=== PATIENT | female | born 1990 | race Caucasian/White ===

== ENCOUNTER 2018-03-10 10:27 | Emergency (ER) | payer BC, OTHER ==
[2018-03-10 13:32] LABS: Absolute Lymphocytes (CBC) 0.9 K/uL (0.7-4.9); Absolute Monocytes 0.2 K/uL (0.1-1.3); Absolute Neutrophil 10.6 K/uL (1.8-8.0); Basophils % 0.1 % (0-1.3); Lymphocytes % 7.4 % (15.3-44.8); MCV 93.9 fL (80-100); MPV 8.4 fL (7.6-11.3); Monocytes % 1.3 % (3.3-12.3)
[2018-03-10 13:49] LABS: Albumin 4.9 g/dL (3.4-5.0); Bilirubin Direct 0.1 mg/dL (0-0.2); Bilirubin Total 0.3 mg/dL (0.2-1.0); Potassium 3.8 mmol/L (3.5-5.1)
[2018-03-10] MEDS ORDERED: NA CHLORIDE 0.9% 1,000 ML ONE (13:56)
[2018-03-10] MEDS ORDERED: hydroCHLOROthiazide 25 MG TAB ONE (13:56)
[2018-03-10] MEDS ORDERED: FAMOTIDINE 20 MG/2 ML VIAL IV ONE (13:56)
--- NOTE | 2018-03-10 14:55 | EDPHYS ---
Physician Documentation [facility] Name: Hawa Godinez Age: 27 yrs Sex: Female : 1990 Arrival Date: 03/10/2018 Time: 10:30 Bed Treatment Private MD: ED Physician Karlo Angeles HPI: 03/10 12:52 This 27 yrs old Female presents to ER via Ambulatory with complaints of Hives.[facility] 12:52 The patient's rash thought to be caused by an unknown cause. The rash is located on the jmm body diffusely. Onset: The symptoms/episode began/occurred gradually, 3 day(s) ago. Associated signs and symptoms: Pertinent positives: itching, Pertinent negatives: swelling of lips, swelling of throat, swelling of tongue, vomiting, wheezing. This is a 27 year old female with a history of PTSD, anxiety that presents to the emergency department with a diffuse rash with itching. Worse in the evenings. Patient states she is currently taking prednisone and benadryl with no relief. Denies vomiting or swelling. . ICU CLERK: 16:52 LMP N/A - iw Historical: - Allergies: 10:40 No Known Allergies; aj - Home Meds: 10:40 Ativan Oral [Active]; cyclobenzaprine 5 mg Oral tab [Active]; tramadol 50 mg Oral tab 1 aj tab every 4-6 hours for Pain [Active]; Prednisone Oral [Active]; Benadryl 25 mg Oral cap [Active]; - PMHx: 10:40 complex regional pain syndrome; aj - PSHx: 10:40 Spinal stimulator; aj - Immunization history:: Adult Immunizations up to date. - Social history:: Smoking status: Patient/guardian denies using tobacco. - Ebola Screening: : Patient negative for fever greater than or equal to 101.5 degrees Fahrenheit, and additional compatible Ebola Virus Disease symptoms Patient denies exposure to infectious person Patient denies travel to an Ebola-affected area in the 21 days before illness onset No symptoms or risks identified at this time. ROS: 12:52 Constitutional: Negative for fever, chills, and weight loss, Cardiovascular: Negative [facility] for chest pain, palpitations, and edema, Respiratory: Negative for shortness of breath, cough, wheezing, and pleuritic chest pain. 12:52 Skin: Positive for rash. 12:52 Allergy/Immunology: Positive for pruritus, rash. 12:52 All other systems are negative. Exam: 12:52 Eyes: EOMI, no conjunctival erythema appreciated Chest/axilla: Normal chest wall [facility] appearance and motion. Cardiovascular: Regular rate and rhythm. No edema appreciated Respiratory: Normal respirations, no respiratory distress appreciated Abdomen/GI: Non distended, soft 12:52 Constitutional: The patient appears in no acute distress, alert, awake. 12:52 Head/face: erythematous rash noted to the cheeks bilaterally. 12:52 Skin: erythematous rash noted to the face, lower back, and legs bilaterally. . 12:52 Neuro: Orientation: is normal, Mentation: is normal, Memory: is normal, Gait: is steady. 12:52 Psych: Behavior/mood is pleasant, cooperative. Vital Signs: 10:40 BP 124 / 56; Pulse 112; Resp 20; Temp 99.1(O); Pulse Ox 97% on R/A; Weight 61.69 kg; aj Height 4 ft. 11 in. (149.86 cm) (R); 14:19 BP 118 / 66; Pulse 87; Resp 16; Pulse Ox 100% on R/A; Pain 0/10; iw 10:40 Body Mass Index 27.47 (61.69 kg, 149.86 cm) aj MDM: 12:52 Patient medically screened. [facility] 14:25 Differential diagnosis: allergic reaction. Data reviewed: vital signs, nurses notes. [facility] Data interpreted: Pulse oximetry: on room air is 100 %. ED course: Patient has mild relief after administration of Pepcid and hydroxyzine. No pharyngeal edema appreciated, VS normal. I do not suspect anaphylaxis. Patient is advised to follow up with central service supply distributor. Otherwise given strict return precautions. Patient understood and agrees with the plan of care. . 03/10 12:52 Order name: Basic Metabolic Panel; Complete Time: 14:25 [facility] 03/10 12:52 Order name: CBC with Diff [facility] 03/10 12:52 Order name: Creatinine for Radiology; Complete Time: 15:03 [facility] 03/10 12:52 Order name: Hepatic Function; Complete Time: 14:25 [facility] 03/10 12:52 Order name: Lipase; Complete Time: 14:25 [facility] 03/10 13:33 Order name: Urine Dipstick--Ancillary (enter results) 03/10 12:52 Order name: IV Saline Lock; Complete Time: 14:23 [facility] 03/10 12:52 Order name: Labs collected and sent; Complete Time: 14:23 [facility] 03/10 13:33 Order name: Urine --Ancillary (enter results) 03/10 13:33 Order name: CBC Smear Scan EDMS Administered Medications: 13:53 Drug: NS 0.9% 1000 ml Route: IV; Rate: 1 bolus; Site: left antecubital; iw 13:53 Drug: Pepcid 20 mg Route: IVP; Site: left antecubital; iw 15:00 Follow up: Response: No adverse reaction iw 13:53 Drug: hydrOXYzine 50 mg Route: PO; iw 16:50 Follow up: Response: No adverse reaction Disposition: 03/11 13:50 Co-signature as Attending Physician, Karlo Angeles MD I agree with the assessment and kdr plan of care. Disposition: 03/10/18 14:55 Discharged to Home. Impression: Rash and other nonspecific skin eruption. - Condition is Stable. - Discharge Instructions: Rash. - Prescriptions for Hydroxyzine HCl 25 mg Oral Tablet - take 1 tablet by ORAL route every 6 hours As needed; 30 tablet. Pepcid 20 mg Oral Tablet - take 1 tablet by ORAL route every 12 hours for 10 days; 20 tablet. Prednisone 20 mg Oral Tablet - take 3 tablet by ORAL route once daily 12 days Please take 3 tabs by mouth daily for 3 days, then 2 tabs by mouth daily for 3 days, then 1 tab by mouth daily for 3 days, then 1/2 tab by mouth daily for 3 days.; 20 tablet. - School release form, Work release form, Medication Reconciliation Form, Thank You Letter, Antibiotic Education, Prescription Opioid Use form. - Follow up: Private Physician; When: 2 - 3 days; Reason: Recheck today's complaints, Continuance of care, Re-evaluation by your physician. Signatures: Dispatcher [employer] EDMS Alba August, RN Karlo Stevens MD MD kdr Mickail, Joel, PA PA Tootie Lopez RN RN iw Corrections: (The following items were deleted from the chart) 03/10 15:16 14:55 03/10/2018 14:55 Discharged to Home. Impression: Rash and other nonspecific skin iw eruption. Condition is Stable. Forms are Medication Reconciliation Form, Thank You Letter, Antibiotic Education, Prescription Opioid Use. Follow up: Private Physician; When: 2 - 3 days; Reason: Recheck today's complaints, Continuance of care, Re-evaluation by your physician. simba
--- NOTE | 2018-03-10 14:55 | ER ---
Nurse's Notes [facility] Name: Hawa Godinez Age: 27 yrs Sex: Female : 1990 Arrival Date: 03/10/2018 Time: 10:30 Bed Treatment Private MD: Diagnosis: Rash and other nonspecific skin eruption Presentation: 03/10 10:38 Presenting complaint: Patient states: Hives that started 3 days ago. Seen by [place] [facility] 3 aj days ago and started on steroids. [facility] and instructed to [facility]. Patient reports hives are continuing to return, in spite of prednisone and Benadryl usage. Airway is patent. Transition of care: patient was not received from another setting of care. Onset: The symptoms/episode began/occurred 3 day(s) ago. Anaphylaxis evaluation, no signs or symptoms of anaphylaxis were noted. Onset of symptoms was March 07, 2018. Risk Assessment: Do you want to hurt yourself or someone else? Patient reports no desire to harm self or others. Initial Sepsis Screen: Does the patient meet any 2 criteria? No. Patient's initial sepsis screen is negative. Does the patient have a suspected source of infection? No. Patient's initial sepsis screen is negative. Care prior to arrival: None. 10:38 Method Of Arrival: Ambulatory aj 10:38 Acuity: KADE 4 aj Triage Assessment: 10:40 General: Appears in no apparent distress. comfortable, Behavior is cooperative, aj appropriate for age, anxious. Pain: Denies pain. Neuro: Level of Consciousness is awake, alert, obeys commands, Oriented to person, place, time, situation, Appropriate for age. Respiratory: Airway is patent Respiratory effort is even, unlabored, Respiratory pattern is regular, symmetrical, Denies shortness of breath. Derm: Skin is intact, is healthy with good turgor, Skin is pink, warm \T\ dry. normal, Rash noted that is itchy, on back, abdomen, right arm and left arm. 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 - Social history:: Smoking status: Patient/guardian denies using tobacco. - Ebola Screening: : Patient negative for fever greater than or equal to 101.5 degrees Fahrenheit, and additional compatible Ebola Virus Disease symptoms Patient denies exposure to infectious person Patient denies travel to an Ebola-affected area in the 21 days before illness onset No symptoms or risks identified at this time. Screenin:31 Abuse screen: Denies threats or abuse. Denies injuries from another. Nutritional iw screening: No deficits noted. Tuberculosis screening: No symptoms or risk factors identified. 13:50 Fall Risk None identified. iw Assessment: 13:00 General: Appears in no apparent distress. comfortable, Behavior is calm, cooperative. iw Neuro: Level of Consciousness is awake, alert, obeys commands, Oriented to person, place, time, situation, Moves all extremities. Full function. Respiratory: Airway is patent Respiratory effort is even, unlabored, Breath sounds are clear bilaterally. Derm: Rash noted that is red, urticaria, on pelvis, right leg and left leg. Musculoskeletal: Capillary refill < 3 seconds, in bilateral fingers. 15:04 Reassessment: Patient appears in no apparent distress at this time. Patient and/or sg family updated on plan of care and expected duration. Pain level reassessed. Patient is alert, oriented x 3, equal unlabored respirations, skin warm/dry/pink. Patient states symptoms have not improved. Vital Signs: 10:40 BP 124 / 56; Pulse 112; Resp 20; Temp 99.1(O); Pulse Ox 97% on R/A; Weight 61.69 kg; aj Height 4 ft. 11 in. (149.86 cm) (R); 14:19 BP 118 / 66; Pulse 87; Resp 16; Pulse Ox 100% on R/A; Pain 0/10; iw 10:40 Body Mass Index 27.47 (61.69 kg, 149.86 cm) aj ED Course: 10:30 Patient arrived in ED. as 10:39 Triage completed. aj 10:40 Arm band placed on left wrist. Patient placed in waiting room, Patient notified of wait aj time. 11:00 Patient has correct armband on for positive identification. iw 12:05 Tootie Mccord, RN is Primary Nurse. iw 12:26 Philip Jesus PA is PHCP. [facility] 12:26 Karlo Angeles MD is Attending Physician. [facility] 13:15 Inserted saline lock: 20 gauge in left antecubital area, using aseptic technique. Blood jp3 collected. 13:15 Initial lab(s) drawn, by me, sent to lab. Urine collected: clean catch specimen, clear, jp3 eric colored. 14:26 Primary Nurse role handed off by Tootie Mccord, RN 14:26 Chance Cool, RN is Primary Nurse. sg 15:03 Awaiting: awaiting IV fluids to infuse prior to DC to home. sg 15:15 No provider procedures requiring assistance completed. IV discontinued, intact, iw bleeding controlled, No redness/swelling at site. Pressure dressing applied. Administered Medications: 13:53 Drug: NS 0.9% 1000 ml Route: IV; Rate: 1 bolus; Site: left antecubital; iw 13:53 Drug: Pepcid 20 mg Route: IVP; Site: left antecubital; iw 15:00 Follow up: Response: No adverse reaction iw 13:53 Drug: hydrOXYzine 50 mg Route: PO; iw 16:50 Follow up: Response: No adverse reaction Outcome: 14:55 Discharge ordered by . [facility] 15:15 Discharged to home ambulatory. iw 15:15 Condition: good 15:15 Discharge instructions given to patient, Instructed on discharge instructions, follow up and referral plans. medication usage, Demonstrated understanding of instructions, follow-up care, medications, Prescriptions given X 3. 15:16 Patient left the ED. iw Signatures: Chance Cool, RN JULIO Alba August RN RN aj Mickail, Joel, PA PA jmm Martinez, Amelia as Tootie Mccord, JULIO KIM Mike Saldaña jp3
[2018-03-10 15:19] LABS: Blood Morphology Comment NOT SEEN (NOT SEEN); Platelet Estimate ADEQ; Urine White Blood Cell Casts OK
[2018-03-10 16:08] LABS: Urine Blood NEGATIVE (NEG); Urine Glucose NEGATIVE (NEG); Urine Protein NEGATIVE (NEG); Urine Specific Gravity 1.015 (1.005-1.030)
== END 2018-03-10 15:16 | disposition home or self-care (01) ==
LOC: ER 10:27
DX: R21 Rash and other nonspecific skin eruption (principal)
CPT/HCPCS: 36415; 80048; 80076; 81003; 81025; 83690; 85025; 96374; 99284; J7030

== ENCOUNTER 2019-01-26 18:24 | Emergency (ER) | payer BC ==
[2019-01-26 21:39] LABS: Bilirubin Total 0.2 mg/dL (0.2-1.0); Potassium 3.8 mmol/L (3.5-5.1); Protein, Total 7.5 g/dL (6.4-8.2)
[2019-01-26 21:49] LABS: Absolute Lymphocytes (CBC) 2.7 K/uL (0.7-4.9); Basophils % 0.6 % (0-1.3); Hematocrit 42.2 % (36.0-45.0); Lymphocytes % 32.1 % (15.3-44.8); MPV 8.2 fL (7.6-11.3); RBC Red Blood Cell Count 4.63 M/uL (3.86-4.86)
[2019-01-26 21:51] LABS: Urine Blood NEGATIVE (NEG); Urine Glucose NEGATIVE (NEG); Urine Protein NEGATIVE (NEG); Urine pH 6.5 (5.0-7.0)
--- NOTE | 2019-01-26 22:12 | ER ---
Nurse's Notes [facility] Name: Hawa Godinez Age: 28 yrs Sex: Female : 1990 Arrival Date: 01/26/2019 Time: 18:26 Bed 8 Private MD: Diagnosis: Paresthesia of skin;Tay's palsy Presentation: 01/26 18:53 Presenting complaint: Numbness of extremities x 3-4 days, headache and numbness on left hb side of face x 3 hrs. Transition of care: patient was not received from another setting of care. Onset of symptoms is unknown. Risk Assessment: Do you want to hurt yourself or someone else? Patient reports no desire to harm self or others. Initial Sepsis Screen: Does the patient meet any 2 criteria? No. Patient's initial sepsis screen is negative. Does the patient have a suspected source of infection? No. Patient's initial sepsis screen is negative. Care prior to arrival: None. 18:53 Method Of Arrival: Ambulatory hb 18:53 Acuity: KADE 3 hb Triage Assessment: 19:06 General: Appears in no apparent distress. comfortable, Behavior is calm, cooperative, cc3 appropriate for age. Pain: Complains of pain in head. Historical: - Allergies: 18:56 No Known Allergies; hb - Home Meds: 19:06 Ativan Oral [Active]; Benadryl 25 mg Oral cap [Active]; cyclobenzaprine 5 mg Oral tab cc3 [Active]; Prednisone Oral [Active]; tramadol 50 mg Oral tab 1 tab every 4-6 hours for Pain [Active]; - PMHx: 18:56 complex regional pain syndrome; hb - Immunization history:: Adult Immunizations up to date. - Social history:: Smoking status: Patient/guardian denies using tobacco, never smoked. - Ebola Screening: : No symptoms or risks identified at this time. Screenin:06 Abuse screen: Denies threats or abuse. Denies injuries from another. Nutritional cc3 screening: No deficits noted. Tuberculosis screening: No symptoms or risk factors identified. Fall Risk Ambulatory Aid- None/Bed Rest/Nurse Assist (0 pts). Gait- Normal/Bed Rest/Wheelchair (0 pts) Mental Status- Oriented to own ability (0 pts). Assessment: 19:06 General: Appears in no apparent distress. comfortable, Behavior is calm, cooperative, cc3 appropriate for age. Pain: Denies pain. Neuro: Level of Consciousness is awake, alert, obeys commands, Oriented to person, place, time, situation, Appropriate for age Tool Programmer are equal bilaterally Moves all extremities. Full function Gait is steady, Speech is normal, Facial symmetry appears normal, Pupils are PERRLA, Numbness in face Reports numbness in her extremities since 3-4 days already. Cardiovascular: Denies chest pain, Heart tones S1 S2 present Capillary refill < 3 seconds in bilateral fingers Patient's skin is warm and dry. Respiratory: Airway is patent Respiratory effort is even, unlabored, Respiratory pattern is regular, symmetrical. GI: Abdomen is round non-distended. : No signs and/or symptoms were reported regarding the genitourinary system. EENT: No signs and/or symptoms were reported regarding the EENT system. Derm: Skin is intact, is healthy with good turgor, Skin is pink, warm \T\ dry. normal. Musculoskeletal: Circulation, motion, and sensation intact. Range of motion: intact in all extremities. 20:10 Reassessment: Patient appears in no apparent distress at this time. Patient and/or cc3 family updated on plan of care and expected duration. Pain level reassessed. Patient is alert, oriented x 3, equal unlabored respirations, skin warm/dry/pink. Dr. Law at bedside. 21:19 Reassessment: Patient appears in no apparent distress at this time. Patient and/or cc3 family updated on plan of care and expected duration. Pain level reassessed. Patient is alert, oriented x 3, equal unlabored respirations, skin warm/dry/pink. 22:30 Reassessment: Patient appears in no apparent distress at this time. Patient and/or cc3 family updated on plan of care and expected duration. Pain level reassessed. Patient is alert, oriented x 3, equal unlabored respirations, skin warm/dry/pink. Dr. Law discharged the patient home with prescriptions given. IV cannula removed by JULIO Kent and patient left ER vitally stable and ambulatory. No valuables left in the patient's room. Patient denies pain at this time. Patient states feeling better. Patient states symptoms have improved. Vital Signs: 18:56 BP 124 / 92; Pulse 100; Resp 16; Temp 97.2; Pulse Ox 100% on R/A; Weight 68.49 kg; hb Height 4 ft. 11 in. (149.86 cm); Pain 2/10; 19:30 BP 106 / 75; Pulse 86; Resp 16 S; Pulse Ox 99% on R/A; cc3 20:10 BP 100 / 68; Pulse 88; Resp 17 S; Pulse Ox 100% on R/A; cc3 21:18 BP 110 / 81; Pulse 81; Resp 16 S; Pulse Ox 100% on R/A; cc3 22:12 BP 112 / 85; Pulse 85; Resp 16 S; Pulse Ox 99% on R/A; Pain 2/10; cc3 18:56 Body Mass Index 30.50 (68.49 kg, 149.86 cm) hb ED Course: 18:26 Patient arrived in ED. mr 18:55 Triage completed. hb 18:56 Arm band placed on. hb 19:06 Yris Finley is Primary Nurse. cc3 19:06 Patient has correct armband on for positive identification. Bed in low position. Call cc3 light in reach. Side rails up X 1. Pulse ox on. NIBP on. 20:07 Edin Law MD is Attending Physician. ps1 20:57 CT completed. Patient tolerated procedure well. Patient moved to [place]. Patient moved back ga from CT. 21:00 Inserted saline lock: 20 gauge in left antecubital area, using aseptic technique. Blood cc3 collected. 21:05 CT Head Brain wo Cont In Process Unspecified. EDMS 22:30 No provider procedures requiring assistance completed. IV discontinued, intact, cc3 bleeding controlled, No redness/swelling at site. Pressure dressing applied. Administered Medications: No medications were administered Outcome: 22:12 Discharge ordered by . ps1 22:30 Discharged to home ambulatory. cc3 22:30 Condition: stable 22:30 Discharge instructions given to patient, Instructed on discharge instructions, follow up and referral plans. medication usage, Demonstrated understanding of instructions, follow-up care, medications, Prescriptions given X 2. 22:31 Patient left the ED. cc3 Signatures: Dispatcher [employer] EDWA Logan Margarette botello MeadowsDilia RN RN He Goff ga Edin Law MD MD ps1 Yris Finley cc3
--- NOTE | 2019-01-26 22:13 | EDPHYS ---
Physician Documentation [facility] Name: Hawa Godinez Age: 28 yrs Sex: Female : 1990 Arrival Date: 01/26/2019 Time: 18:26 Bed 8 Private MD: ED Physician Edin Law HPI: 01/26 22:04 This 28 yrs old Female presents to ER via Ambulatory with complaints of ps1 Numbness Of Face. 22:05 This 28 yrs old Female presents to ER via Ambulatory with complaints of ps1 Numbness Of Face. 22:05 Patient has a history of CRPS II and has had a headache for 3 days. Denies having viral ps1 type illness. States that she has right facial numbness and abnormal taste. No loss of movement in the face. 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 No FND otherwise. No medication taken [employer]ELOPMENT [employer]. . Historical: - Allergies: 18:56 No Known Allergies; hb - Home Meds: 19:06 Ativan Oral [Active]; Benadryl 25 mg Oral cap [Active]; cyclobenzaprine 5 mg Oral tab cc3 [Active]; Prednisone Oral [Active]; tramadol 50 mg Oral tab 1 tab every 4-6 hours for Pain [Active]; - PMHx: 18:56 complex regional pain syndrome; hb - Immunization history:: Adult Immunizations up to date. - Social history:: Smoking status: Patient/guardian denies using tobacco, never smoked. - Ebola Screening: : No symptoms or risks identified at this time. ROS: 22:05 Constitutional: Negative for fever, chills, and weight loss, Eyes: Negative for injury, ps1 pain, redness, and discharge, Cardiovascular: Negative for chest pain, palpitations, and edema, Respiratory: Negative for shortness of breath, cough, wheezing, and pleuritic chest pain, Abdomen/GI: Negative for abdominal pain, nausea, vomiting, diarrhea, and constipation, MS/Extremity: Negative for injury and deformity, Skin: Negative for injury, rash, and discoloration. 22:05 Neuro: Positive for numbness, of the forehead, right eye, right cheek and right jaw, abnormal taste. Exam: 22:05 Radiologist reports: normal ps1 22:05 Constitutional: This is a well developed, well nourished patient who is awake, alert, and in no acute distress. Head/Face: Normocephalic, atraumatic. Eyes: Pupils equal round and reactive to light, extra-ocular motions intact. Lids and lashes normal. Conjunctiva and sclera are non-icteric and not injected. Chest/axilla: Normal chest wall appearance and motion. Nontender with no deformity. No lesions are appreciated. Cardiovascular: Regular rate and rhythm. No gallops, murmurs, or rubs. Normal PMI, no JVD. No pulse deficits. Respiratory: Lungs have equal breath sounds bilaterally, clear to auscultation and percussion. No rales, rhonchi or wheezes noted. No increased work of breathing, no retractions or nasal flaring. Abdomen/GI: Soft, non-tender, with normal bowel sounds. No distension or tympany. No guarding or rebound. No evidence of tenderness throughout. Skin: Warm, dry with normal turgor. Normal color with no rashes, no lesions, and no evidence of cellulitis. MS/ Extremity: Pulses equal, no cyanosis. Neurovascular intact. Full, normal range of motion. Neuro: Awake and alert, GCS 15, oriented to person, place, time, and situation. Cranial nerves II-XII grossly intact. Sensory grossly intact. Vital Signs: 18:56 BP 124 / 92; Pulse 100; Resp 16; Temp 97.2; Pulse Ox 100% on R/A; Weight 68.49 kg; hb Height 4 ft. 11 in. (149.86 cm); Pain 2/10; 19:30 BP 106 / 75; Pulse 86; Resp 16 S; Pulse Ox 99% on R/A; cc3 20:10 BP 100 / 68; Pulse 88; Resp 17 S; Pulse Ox 100% on R/A; cc3 21:18 BP 110 / 81; Pulse 81; Resp 16 S; Pulse Ox 100% on R/A; cc3 22:12 BP 112 / 85; Pulse 85; Resp 16 S; Pulse Ox 99% on R/A; Pain 2/10; cc3 18:56 Body Mass Index 30.50 (68.49 kg, 149.86 cm) hb MDM: 20:21 Patient medically screened. ps1 22:05 Data reviewed: vital signs, nurses notes, lab test result(s), radiologic studies, and ps1 as a result, I will discharge patient. Counseling: I had a detailed discussion with the patient and/or guardian regarding: the historical points, exam findings, and any diagnostic results supporting the discharge/admit diagnosis, lab results, radiology results, the need for outpatient follow up, to return to the emergency department if symptoms worsen or persist or if there are any questions or concerns that arise at home. ED course: symptoms and workup has multiple possible etiologies of disease. CT negative. ? Early [place] associated with numbness and dysgusia. Additionally has fullness of the right ear. Likely peripheral nerve involvement. ? Complex migraine given hx of headache and then development of symptoms. Less likely CVA, No FND in extremities or loss of motor in face. Will rx acyclovir and steroids and have her follow up with neurology OP for further evaluation. . 01/26 20:36 Order name: CBC with Diff; Complete Time: 22:01 ps1 01/26 20:36 Order name: CMP; Complete Time: 21:48 ps1 01/26 20:36 Order name: Urine Dipstick-Ancillary (obtain specimen); Complete Time: 21:24 ps1 01/26 20:36 Order name: CT Head Brain wo Cont ps1 01/26 21:01 Order name: Urine Dipstick--Ancillary (enter results) mw2 01/26 21:01 Order name: Urine --Ancillary (enter results) mw2 Administered Medications: No medications were administered Disposition: 01/26/19 22:12 Discharged to Home. Impression: Paresthesia of skin, Tay's palsy. - Condition is Stable. - Discharge Instructions: Tay Palsy, Adult, Paresthesia. - Prescriptions for Acyclovir 400 mg Oral Tablet - take 1 tablet by ORAL route every 8 hours; 30 tablet. Medrol (Antonio) 4 mg Oral Tablets, Dose Pack - take 1 tablet by ORAL route as directed - follow package instructions; 1 packet. - Medication Reconciliation Form, Thank You Letter, Antibiotic Education, Prescription Opioid Use form. - Follow up: Emergency Department; When: As needed; Reason: Worsening of condition. Follow up: Private Physician; When: 48 Hours; Reason: Further diagnostic work-up, Recheck today's complaints, Continuance of care, Re-evaluation by your physician. - Problem is new. - Symptoms are unchanged. Signatures: Dispatcher [employer] Dilia Meadows RN RN hb Edin Law MD MD ps1 Yris Finley cc3 Corrections: (The following items were deleted from the chart) 22:31 22:12 01/26/2019 22:12 Discharged to Home. Impression: Paresthesia of skin; Tay's cc3 palsy. Condition is Stable. Forms are Medication Reconciliation Form, Thank You Letter, Antibiotic Education, Prescription Opioid Use. Follow up: Emergency Department; When: As needed; Reason: Worsening of condition. Follow up: Private Physician; When: 48 Hours; Reason: Further diagnostic work-up, Recheck today's complaints, Continuance of care, Re-evaluation by your physician. Problem is new. Symptoms are unchanged. ps1
[2019-01-26 22:40] VITALS: TEMP 97.2
[2019-01-26 22:42] VITALS: BP 100/68; O2SAT 100
--- NOTE | 2019-01-27 11:17 | RAD REPORT ---
EXAM DESCRIPTION: Head Brain Wo Cont CLINICAL HISTORY: 28 years Female, numbness right side of face subacute TECHNIQUE: 5 mm axial images were obtained along with 3 mm reformatted coronal and sagittal images. This exam was performed according to our departmental dose-optimization program, which includes autom ated exposure control, adjustment of the mA and/or kV according to patient size and/or use of iterati ve reconstruction technique. COMPARISON: None. FINDINGS: No acute abnormal extracerebral fluid collections are demonstrated. The cortical sulci, ventricles, and cisterns are within normal limits. There are no areas of altered attenuation identified to suggest acute hemorrhage, infarction, or mass lesion. The visualized portions of the paranasal sinuses and mastoid air cells are clear. IMPRESSION: 1. Normal study. Electronically signed by: Corby Hernández MD 01/26/2019 9:14 PM CDT Due to temporary technical issues with the PACS/Fluency reporting system, reports are being signed by the in house radiologist as a courtesy to ensure prompt reporting. The interpreting radiologist is f ully responsible for the content of the report.
== END 2019-01-26 22:31 | disposition home or self-care (01) ==
LOC: ER 18:24
DX: G51.0 Bell's palsy (principal)
CPT/HCPCS: 36415; 70450; 80053; 81003; 81025; 85025; 99284

== ENCOUNTER 2019-07-20 11:05 | Emergency (ER) | payer BC ==
[2019-07-20] MEDS ORDERED: NA CHLORIDE 0.9% 1,000 ML ONE (12:04)
[2019-07-20 12:28] LABS: Absolute Lymphocytes (CBC) 3.5 K/uL (0.7-4.9); Hematocrit 43.3 % (36.0-45.0); Lymphocytes % 27.1 % (15.3-44.8); MPV 8.4 fL (7.6-11.3); RBC Red Blood Cell Count 4.85 M/uL (3.86-4.86)
[2019-07-20 12:51] LABS: ALT/SGPT 22 U/L (12-78); AST/SGOT 7 U/L (15-37); Albumin 3.7 g/dL (3.4-5.0); Alkaline Phosphatase 55 U/L (45-117); BUN Blood Urea Nitrogen 18 mg/dL (7-18); Bicarbonate 29 mmol/L (21-32); Bilirubin Direct < 0.1 mg/dL (0-0.2); Bilirubin Total 0.4 mg/dL (0.2-1.0); Creatine Phosphokinase 21 U/L (26-192); Glucose Level 77 mg/dL (74-106); Magnesium 2.1 mg/dL (1.8-2.4); Potassium 3.7 mmol/L (3.5-5.1); Protein, Total 7.6 g/dL (6.4-8.2); Sodium Level 141 mmol/L (136-145)
--- NOTE | 2019-07-20 13:31 | ER ---
Nurse's Notes [facility] Name: Hawa Godinez Age: 28 yrs Sex: Female : 1990 Arrival Date: 07/20/2019 Time: 11:06 Bed 13 Private MD: Diagnosis: Weakness;Acute pharyngitis Presentation: 07/19 11:32 Chief complaint: Patient states: went to [facility] yesterday and was given meds for bells em palsy, also reports weakness since yesterday, denies fever, reports sweats , has been on steroids for 2 weeks, denies cough but reports SOB. Coronavirus screen: Patient denies fever greater than 100.4F, cough, shortness of breath, or difficulty breathing. Proceed with normal triage process. Ebola Screen: Patient negative for fever greater than or equal to 101.5 degrees Fahrenheit, and additional compatible Ebola Virus Disease symptoms Patient denies exposure to infectious person. Patient denies travel to an Ebola-affected area in the 21 days before illness onset. No symptoms or risks identified at this time. Initial Sepsis Screen: Does the patient meet any 2 criteria? HR > 90 bpm. No. Patient's initial sepsis screen is negative. Does the patient have a suspected source of infection? No. Patient's initial sepsis screen is negative. Risk Assessment: Do you want to hurt yourself or someone else? Patient reports no desire to harm self or others. 11:32 Method Of Arrival: Wheelchair em 11:32 Acuity: KADE 3 em Triage Assessment: 11:40 General: Appears in no apparent distress. comfortable, Behavior is cooperative, bp appropriate for age, anxious. 11:40 Pain: Denies pain. EENT: No deficits noted. Neuro: Level of Consciousness is awake, bp alert, obeys commands, Oriented to person, place, time, situation, Appropriate for age. Cardiovascular: No deficits noted. Respiratory: Reports shortness of breath Onset: The symptoms/episode began/occurred yesterday, the patient reports symptoms have resolved. GI: No signs and/or symptoms were reported involving the gastrointestinal system. : No signs and/or symptoms were reported regarding the genitourinary system. Derm: No deficits noted. Musculoskeletal: No deficits noted. Historical: - Allergies: 11:40 Patrick; em - Home Meds: 11:40 Ativan Oral [Active]; Benadryl 25 mg Oral cap [Active]; cyclobenzaprine 5 mg Oral tab em [Active]; prednisone 5 mg/5 mL oral soln [Active]; tramadol 50 mg Oral tab 1 tab every 4-6 hours for Pain [Active]; - PMHx: 11:40 complex regional pain syndrome; em - Immunization history:: Adult Immunizations up to date. - Social history:: Smoking status: Patient denies any tobacco usage or history of. Screenin:55 Abuse screen: Denies threats or abuse. Denies injuries from another. Nutritional bp screening: No deficits noted. Tuberculosis screening: No symptoms or risk factors identified. Fall Risk None identified. Assessment: 11:55 General: SEE TRIAGE NOTE. Cardiovascular: Rhythm is sinus rhythm. Respiratory: Airway bp is patent Respiratory effort is even, unlabored, Breath sounds are clear bilaterally. 12:31 Reassessment: IVF INFUSING, LABS IN PROCESS. VS STABLE ON MONITOR. bp 14:03 Reassessment: PT D/C HOME VIA W/C WITH FAMILY, DX WITH WEAKNESS AND PHARYNGITIS. bp Vital Signs: 11:32 BP 135 / 89; Pulse 99; Resp 18; Temp 98.2; Pulse Ox 97% on R/A; Weight 71.21 kg; Height em 4 ft. 11 in. (149.86 cm); Pain 6/10; 12:31 BP 112 / 74; Pulse 91; Resp 17; Pulse Ox 99% ; bp 13:00 BP 108 / 75; Pulse 80; Resp 16; Pulse Ox 100% ; bp 14:03 BP 112 / 79; Pulse 84; Resp 17; Temp 98; Pulse Ox 100% ; bp 11:32 Body Mass Index 31.71 (71.21 kg, 149.86 cm) em ED Course: 11:06 Patient arrived in ED. ag5 11:27 Fred Barcenas, JULIO is Primary Nurse. bp 11:29 Arvin Sims PA is PHCP. jr8 11:29 Miah Stacy MD is Attending Physician. jr8 11:37 Triage completed. bp 11:55 Arm band placed on. bp 11:55 Patient has correct armband on for positive identification. Bed in low position. Call bp light in reach. Side rails up X2. 12:10 Inserted saline lock: 20 gauge in right wrist, using aseptic technique. Blood collected.bp 13:00 No provider procedures requiring assistance completed. bp 14:08 IV discontinued, intact, bleeding controlled, No redness/swelling at site. Pressure bp dressing applied. Administered Medications: 12:10 Drug: NS 0.9% 1000 ml Route: IV; Rate: 1000 ml; Site: right wrist; bp 14:08 Follow up: IV Status: Completed infusion; IV Intake: 1000ml bp Intake: 14:08 IV: 1000ml; Total: 1000ml. bp Outcome: 13:30 Discharge ordered by MD. perry 14:08 Discharged to home via wheelchair. bp 14:08 Condition: stable 14:08 Discharge instructions given to patient, Instructed on discharge instructions, follow up and referral plans. medication usage, Demonstrated understanding of instructions, follow-up care, medications, Prescriptions given X 1. 14:09 Patient left the ED. bp Signatures: John Holliday RN RN em Arvin Sims PA PA jr8 Peltier, Brian, RN RN bp Ryan Parker ag5 Corrections: (The following items were deleted from the chart) 11:42 11:36 Chief complaint: Patient states: REFERRED BY [facility] FOR [facility]ICAL I\T\D bp bp 11:42 11:36 Coronavirus screen: Patient denies fever greater than 100.4F, cough, shortness of bp breath, or difficulty breathing. bp 11:42 11:36 Ebola Screen: No symptoms or risks identified at this time. bp bp 11:42 11:36 Initial Sepsis Screen: Does the patient meet any 2 criteria? No. Patient's bp initial sepsis screen is negative. Does the patient have a suspected source of infection? No. Patient's initial sepsis screen is negative. bp 11:42 11:36 Risk Assessment: Do you want to hurt yourself or someone else? Patient reports no bp desire to harm self or others. bp 11:42 11:36 Method Of Arrival: Ambulatory bp bp 11:42 11:36 BP 155 / 100; Pulse 89bpm; Resp 17bpm; Pulse Ox 98%; Temp 98.2F; 86.18 kg; Height bp 5 ft. 7 in.; BMI: 29.7; bp 11:42 11:36 Acuity: KADE 3 bp bp 11:54 11:40 Pain: bp bp
--- NOTE | 2019-07-20 13:31 | EDPHYS ---
Physician Documentation [facility] Name: Hawa Godinez Age: 28 yrs Sex: Female : 1990 Arrival Date: 07/20/2019 Time: 11:06 Bed 13 Private MD: ED Physician Miah Stacy HPI: 07/19 13:26 This 28 yrs old Female presents to ER via Wheelchair with complaints of jr8 General Weakness, Shortness Of Breath. 13:26 Onset: The symptoms/episode began/occurred acutely, today. Associated signs and jr8 symptoms: Pertinent positives: shortness of breath, sore throat. Modifying factors: The patient symptoms are alleviated by nothing, the patient symptoms are aggravated by nothing. The patient has not experienced similar symptoms in the past. The patient has not recently seen a physician. Patient stated that about 2 months ago had virus and was treated with steroids. Started with sore throat the other day. Was tested for flu and strep both of which were negative. Started on antivirals. Came here today for continuation of symptoms and weakness now . Historical: - Allergies: 11:40 Canon; em - Home Meds: 11:40 Ativan Oral [Active]; Benadryl 25 mg Oral cap [Active]; cyclobenzaprine 5 mg Oral tab em [Active]; prednisone 5 mg/5 mL oral soln [Active]; tramadol 50 mg Oral tab 1 tab every 4-6 hours for Pain [Active]; - PMHx: 11:40 complex regional pain syndrome; em - Immunization history:: Adult Immunizations up to date. - Social history:: Smoking status: Patient denies any tobacco usage or history of. ROS: 13:26 Eyes: Negative for injury, pain, redness, and discharge, Neck: Negative for injury, jr8 pain, and swelling, Cardiovascular: Negative for chest pain, palpitations, and edema, Abdomen/GI: Negative for abdominal pain, nausea, vomiting, diarrhea, and constipation, Back: Negative for injury and pain, MS/Extremity: Negative for injury and deformity, Skin: Negative for injury, rash, and discoloration. 13:26 ENT: Positive for sore throat. 13:26 Respiratory: Positive for shortness of breath. 13:26 Neuro: Positive for weakness, Negative for altered mental status, dizziness, gait disturbance, headache, numbness, seizure activity, speech changes, syncope, near syncope, tingling, tinnitus, tremor, visual changes. Exam: 13:26 Eyes: Pupils equal round and reactive to light, extra-ocular motions intact. Lids and jr8 lashes normal. Conjunctiva and sclera are non-icteric and not injected. Cornea within normal limits. Periorbital areas with no swelling, redness, or edema. ENT: Nares patent. No nasal discharge, no septal abnormalities noted. Tympanic membranes are normal and external auditory canals are clear. Oropharynx with no redness, swelling, or masses, exudates, or evidence of obstruction, uvula midline. Mucous membranes moist. Neck: Trachea midline, no thyromegaly or masses palpated, and no cervical lymphadenopathy. Supple, full range of motion without nuchal rigidity, or vertebral point tenderness. No Meningismus. Cardiovascular: Regular rate and rhythm with a normal S1 and S2. No gallops, murmurs, or rubs. Normal PMI, no JVD. No pulse deficits. Respiratory: Lungs have equal breath sounds bilaterally, clear to auscultation and percussion. No rales, rhonchi or wheezes noted. No increased work of breathing, no retractions or nasal flaring. Abdomen/GI: Soft, non-tender, with normal bowel sounds. No distension or tympany. No guarding or rebound. No evidence of tenderness throughout. Back: No spinal tenderness. No costovertebral tenderness. Full range of motion. Skin: Warm, dry with normal turgor. Normal color with no rashes, no lesions, and no evidence of cellulitis. MS/ Extremity: Pulses equal, no cyanosis. Neurovascular intact. Full, normal range of motion. 13:26 Neuro: Orientation: to person, place, time \T\ situation. Mentation: is normal, Memory: is normal, immediate memory is intact, recent memory is intact, remote memory is intact, Cranial nerves: CN I not tested, CN II- XII are normal as tested, visual nichols are intact. extraocular movements are intact, Facial palsy and sensory deficits are absent. Nystagmus is absent. Speech is clear and appropriate. Tongue strength is normal, Cerebellar function: normal finger to nose testing, heel to cottrell testing is normal, Motor: moves all fours, Sensation: no obvious gross deficits, Gait: not tested. Deep tendon reflexes are 3+ (brisk) in the right bicep, right brachioradialis, right patellar, left bicep, left brachioradialis and left patellar, seizure activity, is not displayed by the patient, Abnormal movements: there are no abnormal movements. Vital Signs: 11:32 BP 135 / 89; Pulse 99; Resp 18; Temp 98.2; Pulse Ox 97% on R/A; Weight 71.21 kg; Height em 4 ft. 11 in. (149.86 cm); Pain 6/10; 12:31 BP 112 / 74; Pulse 91; Resp 17; Pulse Ox 99% ; bp 13:00 BP 108 / 75; Pulse 80; Resp 16; Pulse Ox 100% ; bp 14:03 BP 112 / 79; Pulse 84; Resp 17; Temp 98; Pulse Ox 100% ; bp 11:32 Body Mass Index 31.71 (71.21 kg, 149.86 cm) em MDM: 11:30 [facility] 13[facility]26 Data reviewed: vital signs, nurses notes, lab test result(s), and as a result, I will jr8 discharge patient. Data interpreted: Pulse oximetry: on room air is 99 %. Interpretation: normal. Counseling: I had a detailed discussion with the patient and/or guardian regarding: the historical points, exam findings, and any diagnostic results supporting the discharge/admit diagnosis, the need for outpatient follow up, a family practitioner, to return to the emergency department if symptoms worsen or persist or if there are any questions or concerns that arise at home. 13:31 ED course: Discussed with patient that there were no concerning findings on labs. jr8 Nothing to explain what she is feeling. Recommend f/u with PCP. If worse to come back for evaluation . 07/19 11:53 Order name: CBC with Diff; Complete Time: 12:39 07/19 11:53 Order name: Basic Metabolic Panel; Complete Time: 13:20 07/19 11:53 Order name: LFT's; Complete Time: 13:20 07/19 11:53 Order name: CPK; Complete Time: 13:20 07/19 11:53 Order name: Magnesium; Complete Time: 13:20 07/19 11:53 Order name: [place] Screen Profile; Complete Time: 13:20 07/19 11:53 Order name: TSH; Complete Time: 13:20 jr8 07/19 11:53 Order name: T4 Free; Complete Time: 13:20 jr8 Administered Medications: 12:10 Drug: NS 0.9% 1000 ml Route: IV; Rate: 1000 ml; Site: right wrist; bp 14:08 Follow up: IV Status: Completed infusion; IV Intake: 1000ml bp Disposition: 14:38 Co-signature as Attending Physician, Miah Stacy MD. rn Disposition: 07/20/19 13:30 Discharged to Home. Impression: Weakness, Acute pharyngitis. - Condition is Stable. - Discharge Instructions: Pharyngitis, Weakness, Viral Respiratory Infection, Xsak-Fu-Rtna. - Prescriptions for Augmentin 875- 125 mg Oral Tablet - take 1 tablet by ORAL route every 12 hours for 10 days; 20 tablet. - Medication Reconciliation Form, Thank You Letter, Antibiotic Education, Prescription Opioid Use form. - Follow up: Private Physician; When: 5 - 6 days; Reason: Recheck today's complaints, Continuance of care, Re-evaluation by your physician. - Problem is new. - Symptoms have improved. - Notes: Stop Antiviral medications Rest Push fluids Signatures: Dispatcher [employer] John Wilson RN RN Miah Hanson MD MD rn Roszak, Josh, PA PA jr8 Fred Barcenas, RN RN bp Corrections: (The following items were deleted from the chart) 14:09 13:30 07/20/2019 13:30 Discharged to Home. Impression: Weakness; Acute pharyngitis. bp Condition is Stable. Forms are Medication Reconciliation Form, Thank You Letter, Antibiotic Education, Prescription Opioid Use. Follow up: Private Physician; When: 5 - 6 days; Reason: Recheck today's complaints, Continuance of care, Re-evaluation by your physician. Problem is new. Symptoms have improved. jr8
[2019-07-20 14:26] VITALS: O2SAT 100
[2019-07-20 14:27] VITALS: BP 112/79; TEMP 98
== END 2019-07-20 14:09 | disposition home or self-care (01) ==
LOC: ER 11:05
DX: R53.1 Weakness (principal); J02.9 Acute pharyngitis, unspecified; Z88.5 Allergy status to narcotic agent
CPT/HCPCS: 96361; 85025; 80048; 36415; 83735; 82550; 86308; 80076; 84443; 84439; 96360; 99284; J7030

== ENCOUNTER 2019-10-09 11:04 | Emergency (ER) | payer BC ==
--- OUTSIDE RECORDS SUMMARY | 2019-10-09 11:07 | XMS REPORT | Continuity of Care Document ---
:1990 Author Organization [facility] Care Team Providers Name Role Phone [facility] Unavailable Un available Problems Problem Status Onset Classification Date Comments Sourc e Date Reported Depression Active 07/24/2012 [facility] Disturbance Of Active 07/24/2012 [facility]ys[facility] Gait Complex Active Problem 09/09/2019 [facility] N euro regional pain syndrome, type II (disorder) Cramp in limb Active Problem 09/09/2019 [facility] Neuro (finding) Panic disorder Active Problem 09/09/2019 Misc her Neuro (disorder) Simple obesity Active Problem 09/09/2019 Misc her Neuro (disorder) Spasm (finding) Active Problem 09/09/2019 Mis glenna Neuro Medications Medication Details Route Status Patient Ordering Order Source Instructions Provider Date oxcarbazepine 150 mg = Active [facility] 150 MG Oral 1 tab, 020 Neuro Tablet PO, BID, [Trileptal] # 60 tab, 3 Refill(s) Latuda 20 mg, Active [facility] PO, 020 Neuro Bedtime, 0 Refill(s) quetiapine 25 mg, Inactive Mischer PO, 020 Neuro Bedtime, 0 Refill(s) venlafaxine 75 mg, Active Mischer PO, 020 Neuro Bedtime, 0 Refill(s) gabapentin 100 mg, Active [facility]ischer PO, TID, 020 Neuro 0 Refill(s) Acidophilus 100 mg =, Active Mischer PO, 020 Neuro Daily, 0 Refill(s) Lodosyn 25 MG ; Start Active [facility] Oral Tablet Date: 012 Physicians 2; End Date: 0 (Active) TraMADol HCl 50 ; Start Active [facility] MG Oral Tablet Date: 012 Physician s 2 (Active) Ativan 1 MG Oral ; Start Active [facility] Tablet Date: 012 Physicians 2 (Active) Mirtazapine 7.5 ; Start Active [facility] MG Oral Tablet Date: 012 Physician s 2 (Active) Flexeril 5 MG ; Start Active [facility] Oral Tablet Date: 012 Physicians 2 (Active) Tylenol 325 MG ; Start Active [facility] Oral Tablet Date: 012 Physicians 2 (Active) Carbidopa-Levodo ; Start Active UT pa ER 50-200 MG Date: 012 Physicia ns Oral Tablet Extended Release 2; End Date: 0 (Active) Allergies, Adverse Reactions, Alerts Substance Category Reaction Severity Reaction Status Date Comments S ource type Reported Hydrocodone drug drug Active [facility] -Acetaminop allergy allergy Phys icians hen CAPS APAP/caffei Assertion severe Allergy to Active [facility] ne/CPM/hydr itch substance Ne uro ocodone/PE Immunizations No Data Provided for This Section Results No Data Provided for This Section Pathology Reports No Data Provided for This Section Diagnostic Reports No Data Provided for This Section Consultation Notes No Data Provided for This Section Discharge Summaries No Data Provided for This Section History and Physicals No Data Provided for This Section Vital Signs Vital Sign Value Date Comments Source Systolic (mm Hg) 102 09/06/2019 [facility] Diastolic (mm Hg) 76 09/06/2019 [facility] Heart Rate 83 09/06/2019 [facility] Respitory Rate 16 09/06/2019 [facility] [place] Oral (F) 98.6 F 09/06/2019 [facility] Height 149.86 cm 09/06/2019 [facility] Weight 72.727 09/06/2019 [facility] BMI Calculated 32.38 09/06/2019 [facility] Systolic (mm Hg) 114 08/23/2019 [facility] Diastolic (mm Hg) 90 08/23/2019 [facility] Ne uro Heart Rate 79 08/23/2019 [facility] Respitory Rate 16 08/23/2019 [facility] Temperature Oral (F) 97.1 F 08/23/2019 [facility] Height 149.86 cm 08/23/2019 [facility] Weight 72.727 08/23/2019 [facility] [place] Calculated 32.38 08/23/2019 [facility] [place]ters Location Location Encounter Encounter Reason Attending ADM [facility] Stat us Source Details Type Number For Provider Date Date Visit AUDIT [id number] 04/19 Physician s AUDIT [id number] 05/19 Physician s AUDIT [id number] 07/23 Physician s Outpatient [id number] Gil 08/22 Active [facility] [place] [facility] [id number] Gil 08/22 08/23 [facility] [place] [facility] [id number] Gil 09/05 Active [facility] [place] [facility] [id number] Gil 09/05 09/06 [facility] [place] [facility] [id number] Gil 10/17 [facility] [place] Procedures Procedure Code Date Perfomer Comments Source Hernia repair [id number] [facility] Lumbar puncture [id number] [facility] N euro Assessment and Plan No Data Provided for This Section Plan of Care No Data Provided for This Section Social History Social History Date Source Social History TypeResponse 09/06/2019 [facility] Ne[facility] o Smoking Status Never smoker; Exposure to Tobacco Smoke Unable to obtain; Cigarette Smoking Last 365 Days Unable to obtain; Reg Smoking Cessation Counseling No entered on: 09/06/19 Never A Smoker (Active) 07/24/2012 [facility]ans No History of Alcohol Use (Denied) No History of Drug Use (Denied) Marital History - Currently (Active) Family History Value Date Source Family history of Diabetes 07/24/2012 [facility] Mellitus (V18.0); (Active) Family history of Heart Disease (V17.49); (Active) Family history of Thyroid Disorder (V18.19); (Active) Family history of Reported Family History Of Substance Abuse (Active) Family history of Diabetes 05/20/2012 [facility] Mellitus (V18.0); (Active) Family history of Heart Disease (V17.49); (Active) Family history of Thyroid Disorder (V18.19); (Active) Family history of Reported Family History Of Substance Abuse (Active) Family history of Diabetes 04/20/2012 [facility] Mellitus (V18.0); (Active) Family history of Heart Disease (V17.49); (Active) Family history of Thyroid Disorder (V18.19); (Active) Family history of Reported Family History Of Substance Abuse (Active) Advance Directives Order Name Results Value Date Source Advance Directives Advance Directives No Advance 07/24/2012 [facility] Directives available. Advance Directives Advance Directives No Advance 05/20/2012 [facility] Directives available. Advance Directives Advance Directives No Advance 04/20/2012 [facility] Directives available. Functional Status No Data Provided for This Section
--- OUTSIDE RECORDS SUMMARY | 2019-10-09 11:08 | XMS REPORT | Summary of Care ---
:1990 Author Organization [facility] Neurology [place] Address [address] [place] [address]- Encounter HQ Dominic(MERNA) [id number] Date(s): 08/23/19 - 08/23/19 [facility] [address] [place] [address]- [phone] Discharge Disposition: Home or Self Care Attending Physician: Gil Valverde MD Referring Physician: Gil Valverde MD Vital Signs Most recent to oldest [Reference Range]: 1 Height 149.86 cm (08/23/19 9:46 AM) Temperature Oral [96.4-99.1 DegF] 97.1 DegF (08/23/19 9:46 AM) Blood Pressure [90-140/60-90 mmHg] 114/90 mmHg (08/23/19 9:46 AM) Respiratory Rate [14-20 BRMIN] 16 BRMIN (08/23/19 9:46 AM) Peripheral Pulse Rate [60-100 bpm] 79 bpm (08/23/19 9:46 AM) Weight 72.727 kg (08/23/19 9:46 AM) Body Mass Index 32.38 m2 (08/23/19 9:46 AM) Problem List Condition Effective Dates Status Health Status Informant CRPS type II(Confirmed) Active Limb cramps(Confirmed) Active Panic disorder(Confirmed) Active Simple obesity(Confirmed) Active Spasms of the hands or feet(Confirmed) Active Allergies, Adverse Reactions, Alerts Substance Reaction Severity Status APAP/caffeine/CPM/hydrocodone/PE severe itch Active Medications Acidophilus 100 mg =, PO, Daily, 0 Refill(s) Start Date: 08/23/19 Status: Orderedgabapentin 100 mg, PO, TID, 0 Refill(s) Start Date: 08/23/19 Status: OrderedQUEtiapine 25 mg, PO, Bedtime, 0 Refill(s) Start Date: 08/23/19 Stop Date: 08/23/19 Status: DiscontinuedQUEtiapine 75 mg, PO, Bedtime, 0 Refill(s) Start Date: 08/23/19 Status: Orderedvenlafaxine 75 mg, PO, Bedtime, 0 Refill(s) Start Date: 08/23/19 Status: Orderedvenlafaxine 150 mg, PO, Bedtime, 0 Refill(s) Start Date: 08/23/19 Status: Ordered Results No data available for this section Immunizations No data available for this section Procedures Procedure Date Related Diagnosis Body Site Status Hernia repair Completed Lumbar puncture Completed Social History Social History Type Response Smoking Status Never smoker; Exposure to To bacco Smoke Unable to obtain; Cigarette Smoking Last 365 Days Unable to obtain; Reg Smoking Cessation Counseling No entered on: 08/23/19 Assessment and Plan No data available for this section
--- OUTSIDE RECORDS SUMMARY | 2019-10-09 11:08 | XMS REPORT | Summary of Care ---
:1990 Author Organization [facility] Neurology [place] Address [address] [place] [address]- Encounter HQ Dominic(FIN) [id number] Date(s): 09/06/19 - 09/06/19 [facility] [address] [place] [address]- [phone] Discharge Disposition: Home or Self Care Attending Physician: Gil Valverde MD Vital Signs Most recent to oldest [Reference Range]: 1 Height 149.86 cm (09/06/19 11:37 AM) Temperature Oral [96.4-99.1 DegF] 98.6 DegF (09/06/19 11:37 AM) Blood Pressure [90-140/60-90 mmHg] 102/76 mmHg (09/06/19 11:37 AM) Respiratory Rate [14-20 BRMIN] 16 BRMIN (09/06/19 11:37 AM) Peripheral Pulse Rate [60-100 bpm] 83 bpm (09/06/19 11:37 AM) Weight 72.727 kg (09/06/19 11:37 AM) Body Mass Index 32.38 m2 (09/06/19 11:37 AM) Problem List Condition Effective Dates Status Health Status Informant CRPS type II(Confirmed) Active Limb cramps(Confirmed) Active Panic disorder(Confirmed) Active Simple obesity(Confirmed) Active Spasms of the hands or feet(Confirmed) Active Allergies, Adverse Reactions, Alerts Substance Reaction Severity Status APAP/caffeine/CPM/hydrocodone/PE severe itch Active Medications Latuda 20 mg, PO, Bedtime, 0 Refill(s) Start Date: 09/06/19 Status: OrderedTrileptal 150 mg oral tablet 150 mg = 1 tab, PO, BID, # 60 tab, 3 Refill(s) Start Date: 09/06/19 Stop Date: 01/04/20 Status: Ordered Results No data available for [...] Smoking Cessation Counseling No entered on: 09/06/19 Assessment and Plan No data available for this section
[2019-10-09] MEDS ORDERED: KETOROLAC 30 MG/ML INJ ONE (11:29)
--- NOTE | 2019-10-09 11:52 | EDPHYS ---
Physician Documentation [facility] Name: Hawa Godinez Age: 29 yrs Sex: Female : 1990 Arrival Date: 10/09/2019 Time: 11:05 Bed 4 Private MD: LC Physician Lawrence Christianson HPI: 10/08 11:23 This 29 yrs old Female presents to ER via Wheelchair with complaints of Ankle jr8 Injury. 11:23 The patient presents with decreased range of motion, pain, that is acute, swelling, jr8 tenderness. The complaints affect the left ankle. Onset: The symptoms/episode began/occurred acutely, today. Context: The problem was sustained outdoors, resulted from a mis-step by the patient, on a curb, The mechanism of injury involved inversion of the affected ankle. Associated signs and symptoms: The patient has no apparent associated signs or symptoms. Modifying factors: The symptoms are alleviated by nothing, the symptoms are aggravated by weight bearing, movement. Severity of symptoms: At their worst the symptoms were moderate, in the emergency department the symptoms are unchanged. The patient has not experienced similar symptoms in the past. The patient has not recently seen a physician. 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 - Social history:: Smoking status: Patient denies any tobacco usage or history of. ROS: 11:23 Eyes: Negative for injury, pain, redness, and discharge, ENT: Negative for injury, jr8 pain, and discharge, Neck: Negative for injury, pain, and swelling, Cardiovascular: Negative for chest pain, palpitations, and edema, Respiratory: Negative for shortness of breath, cough, wheezing, and pleuritic chest pain, Abdomen/GI: Negative for abdominal pain, nausea, vomiting, diarrhea, and constipation, Back: Negative for injury and pain, Skin: Negative for injury, rash, and discoloration, Neuro: Negative for headache, weakness, numbness, tingling, and seizure. 11:23 MS/extremity: Positive for decreased range of motion, pain, swelling, tenderness, of the left ankle. Exam: 11:23 Eyes: Pupils equal round and reactive to light, extra-ocular motions intact. Lids and jr8 lashes normal. Conjunctiva and sclera are non-icteric and not injected. Cornea within normal limits. Periorbital areas with no swelling, redness, or edema. ENT: Nares patent. No nasal discharge, no septal abnormalities noted. Tympanic membranes are normal and external auditory canals are clear. Oropharynx with no redness, swelling, or masses, exudates, or evidence of obstruction, uvula midline. Mucous membranes moist. Neck: Trachea midline, no thyromegaly or masses palpated, and no cervical lymphadenopathy. Supple, full range of motion without nuchal rigidity, or vertebral point tenderness. No Meningismus. Cardiovascular: Regular rate and rhythm with a normal S1 and S2. No gallops, murmurs, or rubs. Normal PMI, no JVD. No pulse deficits. Respiratory: Lungs have equal breath sounds bilaterally, clear to auscultation and percussion. No rales, rhonchi or wheezes noted. No increased work of breathing, no retractions or nasal flaring. Abdomen/GI: Soft, non-tender, with normal bowel sounds. No distension or tympany. No guarding or rebound. No evidence of tenderness throughout. Back: No spinal tenderness. No costovertebral tenderness. Full range of motion. Skin: Warm, dry with normal turgor. Normal color with no rashes, no lesions, and no evidence of cellulitis. Neuro: Awake and alert, GCS 15, oriented to person, place, time, and situation. Cranial nerves II-XII grossly intact. Motor strength 5/5 in all extremities. Sensory grossly intact. Cerebellar exam normal. Normal gait. 11:23 Musculoskeletal/extremity: Extremities: grossly normal except: noted in the lateral malleolus left ankle: pain, swelling, tenderness, No laceration, abrasion, or bruising noted, ROM: limited active range of motion, in the left ankle, limited passive range of motion, in the left ankle, limited active range of motion due to pain, in the left ankle, limited passive range of motion due to pain, in the left ankle, Pulses: noted to be 2+ in the right radial artery, right posterior tibial artery, right dorsalis pedis artery, left radial artery, left posterior tibial artery and left dorsalis pedis artery, Sensation intact. Vital Signs: 11:20 BP 100 / 67; Pulse 99; Resp 18 S; Temp 98.3; Pulse Ox 100% on R/A; Weight 73.03 kg; iw Height 4 ft. 11 in. (149.86 cm); Pain 10/10; 12:27 BP 103 / 60; Pulse 71; Resp 16; Pulse Ox 98% ; bp 11:20 Body Mass Index 32.52 (73.03 kg, 149.86 cm) iw Procedures: 11:50 Splinting: Splint applied to left ankle using Air Cast, applied by nurse. Examined by jr8 me, post splint application: neurovascular intact, 2+ distal pulses palpable, brisk capillary refill noted, Patient tolerated well. Crutch training provided to patient and/or family. Return demonstration given. MDM: 11:17 Patient medically screened. jr8 11:50 Data reviewed: vital signs, nurses notes, radiologic studies, plain films. Data jr8 interpreted: Pulse oximetry: on room air is 100 %. Interpretation: normal. Counseling: I had a detailed discussion with the patient and/or guardian regarding: the historical points, exam findings, and any diagnostic results supporting the discharge/admit diagnosis, radiology results, the need for outpatient follow up, a orthopedic surgeon, to return to the emergency department if symptoms worsen or persist or if there are any questions or concerns that arise at home. 10/08 11:18 Order name: XRAY Ankle LEFT 3 view; Complete Time: 12:12 [email or web address] 10/08 11:50 Order name: Aircast Ankle Splint; Complete Time: 12:08 [email or web address] 10/08 11:50 Order name: Crutches; Complete Time: 12:27 [facility] [[email or web address] Administered Medications: 11:25 Drug: TORadol 30 mg Route: IM; Site: right deltoid; bp 11:35 Follow up: Response: Pain is decreased bp Disposition: 17:00 Co-signature as Attending Physician, Lawrence Christianson MD I agree with the assessment and myron plan of care. Disposition: 10/09/19 11:51 Discharged to Home. Impression: Sprain of ankle. - Condition is Stable. - Discharge Instructions: Ankle Sprain, RICE for Routine Care of Injuries. - Prescriptions for Ibuprofen 800 mg Oral Tablet - take 1 tablet by ORAL route every 12 hours As needed take with food; 20 tablet. Tylenol- Codeine #3 300-30 mg Oral Tablet - take 2 tablets by ORAL route every 6 hours As needed; 20 tablet. - Medication Reconciliation Form, Thank You Letter, Antibiotic Education, Prescription Opioid Use form. - Follow up: Chance Ann MD; When: 7 - 10 days; Reason: Recheck today's complaints, Continuance of care, Re-evaluation by your physician. - Problem is new. - Symptoms have improved. Signatures: Dispatcher [employer] EDMS Lawrence Christianson MD MD cha Williams, Irene, RN RN iw Arvin Sims PA PA jr8 Fred Barcenas, RN RN bp Corrections: (The following items were deleted from the chart) 12:28 11:51 10/09/2019 11:51 Discharged to Home. Impression: Sprain of ankle. Condition is bp Stable. Forms are Medication Reconciliation Form, Thank You Letter, Antibiotic Education, Prescription Opioid Use. Follow up: Chance Ann; When: 7 - 10 days; Reason: Recheck today's complaints, Continuance of care, Re-evaluation by your physician. Problem is new. Symptoms have improved. jr8
--- NOTE | 2019-10-09 11:52 | ER ---
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 Coronavirus screen: Proceed with normal triage. Patient denies a cough. Patient denies shortness of breath or difficulty breathing. Patient denies measured and/or subjective temperature greater than 100.4F prior to today's visit. Patient denies travel on a cruise ship or to a country the [facility] currently lists as an affected area. Patient denies contact with known and/or suspected case of COVID-19. Ebola Screen: Patient negative for fever greater than or equal to 101.5 degrees Fahrenheit, and additional compatible Ebola Virus Disease symptoms Patient denies exposure to infectious person. Patient denies travel to an Ebola-affected area in the 21 days before illness onset. No symptoms or risks identified at this time. Initial Sepsis Screen: Does the patient meet any 2 criteria? No. Patient's initial sepsis screen is negative. Does the patient have a suspected source of infection? No. Patient's initial sepsis screen is negative. Risk Assessment: Do you want to hurt yourself or someone else? Patient reports desire/thoughts of hurting themselves or someone else. Provider notified. Onset of symptoms was October 09, 2019. 11:20 Method Of Arrival: Wheelchair iw 11:20 Acuity: KADE 4 iw Triage Assessment: 11:20 General: Appears in no apparent distress. uncomfortable, Behavior is cooperative, bp appropriate for age, anxious. Pain: Complains of pain in left lateral ankle. EENT: No deficits noted. Neuro: No deficits noted. Cardiovascular: No deficits noted. Respiratory: No deficits noted. GI: No signs and/or symptoms were reported involving the gastrointestinal system. : No signs and/or symptoms were reported regarding the genitourinary system. Derm: No deficits noted. Musculoskeletal: No deficits noted. Reports pain in left lateral ankle. 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 - Social history:: Smoking status: Patient denies any tobacco usage or history of. Screenin:25 Abuse screen: Denies threats or abuse. Denies injuries from another. Nutritional bp screening: No deficits noted. Tuberculosis screening: No symptoms or risk factors identified. Fall Risk None identified. Assessment: 11:20 General: SEE TRIAGE NOTE. bp 12:10 Reassessment: D/C ON HOLD FOR CRUTCHES DELIVERY. bp 12:27 Reassessment: PT D/C HOME ON CRUTCHES, DX WITH ANKLE SPRAIN. bp Vital Signs: 11:20 BP 100 / 67; Pulse 99; Resp 18 S; Temp 98.3; Pulse Ox 100% on R/A; Weight 73.03 kg; iw Height 4 ft. 11 in. (149.86 cm); Pain 10/10; 12:27 BP 103 / 60; Pulse 71; Resp 16; Pulse Ox 98% ; bp 11:20 Body Mass Index 32.52 (73.03 kg, 149.86 cm) iw ED Course: 11:05 Patient arrived in ED. as 11:17 Arvin Sims PA is PHCP. jr8 11:17 Lawrence Christianson MD is Attending Physician. jr8 11:18 Fred Barcenas, RN is Primary Nurse. bp 11:21 Triage completed. iw 11:22 Arm band placed on. iw 11:25 Patient has correct armband on for positive identification. Bed in low position. Call bp light in reach. Side rails up X2. 11:46 XRAY Ankle LEFT 3 view In Process Unspecified. EDMS 11:51 Chance Ann MD is Referral Physician. jr8 12:08 Air stirrup applied to left ankle. 5 12:27 No provider procedures requiring assistance completed. Patient did not have IV access bp during this emergency room visit. Administered Medications: 11:25 Drug: TORadol 30 mg Route: IM; Site: right deltoid; bp 11:35 Follow up: Response: Pain is decreased bp Outcome: 11:51 Discharge ordered by . jr8 12:27 Discharged to home with crutches. bp 12:27 Condition: stable 12:27 Discharge instructions given to patient, Instructed on discharge instructions, follow up and referral plans. medication usage, Demonstrated understanding of instructions, follow-up care, medications, Prescriptions given X 2. 12:28 Patient left the ED. bp Signatures: Dispatcher [employer] Marry Cummins Irene, RN RN Arvin Sims PA PA 8 Jacy Quinn [facility] Fred Barcenas RN RN bp Corrections: (The following items were deleted from the chart) 11:21 11:20 BP 100 / ???; Pulse 67bpm; Resp 99bpm; Spontaneous; Pulse Ox 100% RA; Temp 98.3F; iw 73.03 kg; Height 4 ft. 11 in.; BMI: 32.5; Pain 10; iw
--- NOTE | 2019-10-09 12:05 | RAD REPORT ---
EXAM DESCRIPTION: RAD - Ankle Left 3 View - 10/09/2019 11:44 am COMPARISON: None. FINDINGS: No fracture, dislocation or periosteal reaction. No joint effusion seen. No joint space na rrowing. No soft tissue abnormality. Lateral soft tissue swelling is present. IMPRESSION: Soft tissue swelling with no left ankle fracture.
[2019-10-09 12:45] VITALS: TEMP 98.3
[2019-10-09 12:50] VITALS: BP 103/60; O2SAT 98
== END 2019-10-09 12:28 | disposition home or self-care (01) ==
LOC: ER 11:04
DX: S93.402A Sprain of unspecified ligament of left ankle, initial encounter (principal); X58.XXXA Exposure to other specified factors, initial encounter; Y93.9 Activity, unspecified; Y92.89 Other specified places as the place of occurrence of the external cause; Z88.5 Allergy status to narcotic agent
CPT/HCPCS: 96372; 99284

== ENCOUNTER 2021-02-11 11:58 | Emergency (ER) | payer BC ==
[2021-02-11 13:15] LABS: Urine Blood Negative (Negative); Urine Glucose Negative (Negative); Urine Protein Negative (Negative); Urine Specific Gravity 1.025 (1.005-1.030)
[2021-02-11 13:16] LABS: Urine Specific Gravity/Preg 1.025 (1.005-1.030)
--- NOTE | 2021-02-11 13:40 | RAD REPORT ---
EXAM DESCRIPTION: US - Transvaginal Study Probe - 02/11/2021 1:16 pm CLINICAL HISTORY: VAGINAL BLEEDING COMPARISON: No comparisons TECHNIQUE: Endovaginal sonography was performed. FINDINGS: Uterus is normal size with no myometrial mass identifiable. IUD is in place and appears we ll positioned within the endometrial cavity. No endometrial mass or polyp identifiable. Endometrial t hickness is difficult to determine due to the shadowing affects of the IUD. Endometrial measurement i s less than 10 mm. Both ovaries are identified and normal size. A 12 millimeter anechoic cyst is present in the right ov kathryn with a 21 anechoic cyst in the in the left kidney. Doppler evaluation shows normal blood flow wit hin the ovarian stroma. No blood or fluid in the cul de sac. IMPRESSION: Normal size uterus with no myometrial or endometrial abnormality identifiable. IUD appears well positioned within the endometrial cavity. Small benign anechoic bilateral renal cysts. No suspicious adnexal finding.
[2021-02-11 14:07] LABS: Absolute Lymphocytes (CBC) 1.1 K/uL (0.7-4.9); Basophils % 0.6 % (0-1.3); Hematocrit 42.9 % (36.0-45.0); Lymphocytes % 33.2 % (15.3-44.8); MPV 8.5 fL (7.6-11.3); RBC Red Blood Cell Count 4.73 M/uL (3.86-4.86)
[2021-02-11 14:22] LABS: BUN Blood Urea Nitrogen 14 mg/dL (7-18); Bicarbonate 28 mmol/L (21-32); Glucose Level 81 mg/dL (74-106); Sodium Level 140 mmol/L (136-145)
--- NOTE | 2021-02-11 15:30 | EDPHYS ---
Physician Documentation [facility] Name: Hawa Godinez Age: 30 yrs Sex: Female : 1990 Arrival Date: 02/11/2021 Time: 11:59 Bed 25 Private MD: ED Physician Neil Martinez HPI: 02/11 14:20 This 30 yrs old Female presents to ER via Ambulatory with complaints of kb Abdominal Pain. 14:20 The patient presents with abdominal pain. Onset: The symptoms/episode began/occurred 3 kb day(s) ago. The symptoms do not radiate. Associated signs and symptoms: Pertinent positives: nausea, vaginal bleeding. The symptoms are described as constant. Modifying factors: The symptoms are alleviated by nothing, the symptoms are aggravated by nothing. Severity of pain: At its worst the pain was moderate in the emergency department the pain is unchanged. The patient has not experienced similar symptoms in the past. The patient has not recently seen a physician. Pt reports vaginal bleeding after intercourse 3 days ago. States the bleeding stopped the next day, but now she is having flu like symptoms including chills, fatigue, malaise, body aches. Denies fever, cough, congestion. STates she was exposed to COVID a few days prior to the bleeding. 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 - Social history:: Smoking status: Patient denies any tobacco usage or history of. ROS: 14:19 Respiratory: Negative for shortness of breath, cough, wheezing, and pleuritic chest kb pain. 14:19 Constitutional: Positive for body aches, chills, fatigue, malaise. 14:19 Abdomen/GI: Positive for abdominal pain, nausea, Negative for vomiting, diarrhea. 14:19 : Positive for vaginal bleeding. 14:19 All other systems are negative. Exam: 14:19 Constitutional: This is a well developed, well nourished patient who is awake, alert, kb and in no acute distress. Head/Face: Normocephalic, atraumatic. ENT: Moist Mucous membranes Cardiovascular: Regular rate and rhythm with a normal S1 and S2. No gallops, murmurs, or rubs. No pulse deficits. Respiratory: Respirations even and unlabored. No increased work of breathing, no retractions or nasal flaring. Abdomen/GI: Soft, non-tender. No distention Skin: Warm, dry with normal turgor. Normal color. MS/ Extremity: Pulses equal, no cyanosis. Neurovascular intact. Full, normal range of motion. Neuro: Awake and alert, GCS 15, oriented to person, place, time, and situation. Moves all extremities. Normal gait. Psych: Awake, alert, with orientation to person, place and time. Behavior, mood, and affect are within normal limits. Vital Signs: 12:23 BP 113 / 84; Pulse 85; Resp 16 S; Temp 98.6(TE); Pulse Ox 96% on R/A; Weight 53.98 kg aa5 (R); Height 4 ft. 11 in. (149.86 cm) (R); 15:14 BP 104 / 75; Pulse 79; Pulse Ox 100% on R/A; ap3 12:23 Body Mass Index 24.03 (53.98 kg, 149.86 cm) aa5 MDM: 12:46 Patient medically screened. kb 14:18 Data reviewed: vital signs, nurses notes. Data interpreted: Pulse oximetry: on room air kb is 96 %. Interpretation: normal. 15:25 Counseling: I had a detailed discussion with the patient and/or guardian regarding: the kb historical points, exam findings, and any diagnostic results supporting the discharge/admit diagnosis, lab results, radiology results, the need for outpatient follow up, a family practitioner, to return to the emergency department if symptoms worsen or persist or if there are any questions or concerns that arise at home. 02/11 12:55 Order name: CBC with Diff; Complete Time: 14:11 kb 02/11 12:55 Order name: Basic Metabolic Panel; Complete Time: 14:23 kb 02/11 12:55 Order name: [place] Screen Profile; Complete Time: 14:52 kb 02/11 12:55 Order name: Flu; Complete Time: 15:25 kb 02/11 13:14 Order name: Urine --Ancillary (enter results); Complete Time: 13:33 bd 02/11 12:33 Order name: US Transvaginal Study (Probe); Complete Time: 13:43 kb 02/11 12:55 Order name: Urine Dipstick-Ancillary (obtain specimen); Complete Time: 13:14 kb 02/11 12:55 Order name: IV Start; Complete Time: 14:01 kb 02/11 13:14 Order name: Urine Dipstick-Ancillary; Complete Time: 13:33 EDMS 02/11 14:23 Order name: SARS-COV-2 RT PCR; Complete Time: 15:19 EDMS Administered Medications: No medications were administered Disposition: 02/12 14:22 Co-signature as Attending Physician, Neil Martinez MD I agree with the assessment and sp3 plan of care. Disposition Summary: 02/11/21 15:29 Discharge Ordered Location: Home kb Condition: Stable kb Diagnosis - Abnormal uterine and vaginal bleeding, unspecified kb - Myalgia kb Followup: kb - With: Emergency Department - When: As needed - Reason: Worsening of condition Followup: kb - With: Private Physician - When: 2 - 3 days - Reason: Recheck today's complaints, Continuance of care, Re-evaluation by your physician Discharge Instructions: - Discharge Summary Sheet kb - Muscle Pain, Adult kb - Abnormal Uterine Bleeding, [id number] kb Forms: - Medication Reconciliation Form kb - Thank You Letter kb - Antibiotic Education kb - Prescription Opioid Use kb Signatures: Dispatcher [employer] EDIA Farzaneh Dumont, SWEATBAND MAKER-C SWEATBAND MAKER-Bibiana Trimble RN RN aa5 Alba Gonzalez RN RN ap3 Neil Martinez MD MD sp3 Corrections: (The following items were deleted from the chart) 02/11 14:23 12:56 CORONAVIRUS+BRZ ordered. [facility] EDIA
--- NOTE | 2021-02-11 15:30 | ER ---
Nurse's Notes [facility] Name: Hawa Godinez Age: 30 yrs Sex: Female : 1990 Arrival Date: 02/11/2021 Time: 11:59 Bed 25 Private MD: Diagnosis: Abnormal uterine and vaginal bleeding, unspecified;Myalgia Presentation: 02/11 12:23 Chief complaint: Patient states: "a few days ago I had sex with my and I aa5 started bleeding a lot right after and I have an IUD so I'm not sure if it moved or what is going on". Pt c/o lower abd pain and low back pain. Pt also reports nausea and body aches but denies fever/cough/congestion. Coronavirus screen: muscle pain. Ebola Screen: No symptoms or risks identified at this time. Initial Sepsis Screen: Does the patient meet any 2 criteria? No. Patient's initial sepsis screen is negative. Does the patient have a suspected source of infection? No. Patient's initial sepsis screen is negative. Risk Assessment: Do you want to hurt yourself or someone else? Patient reports no desire to harm self or others. Onset of symptoms was January 2021. 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 - Social history:: Smoking status: Patient denies any tobacco usage or history of. Screenin:56 Abuse screen: Denies threats or abuse. Nutritional screening: No deficits noted. ap3 Tuberculosis screening: No symptoms or risk factors identified. Fall Risk None identified. Assessment: 12:54 General: Appears in no apparent distress. Behavior is calm, cooperative, appropriate ap3 for age, Reports chills for 1-2 days. Pain: Complains of pain in suprapubic area, right lower quadrant and left lower quadrant Quality of pain is described as aching, crampy, throbbing. Neuro: Level of Consciousness is awake, alert, obeys commands, Oriented to person, place, time, situation, Appropriate for age Moves all extremities. Gait is steady, Speech is normal. Cardiovascular: Patient's skin is warm and dry. Respiratory: Airway is patent. GI: Bowel sounds present X 4 quads. Abd is soft X 4 quads Abdomen is tender to palpation in suprapubic area. : Reports vaginal pain. Vital Signs: 12:23 BP 113 / 84; Pulse 85; Resp 16 S; Temp 98.6(TE); Pulse Ox 96% on R/A; Weight 53.98 kg aa5 (R); Height 4 ft. 11 in. (149.86 cm) (R); 15:14 BP 104 / 75; Pulse 79; Pulse Ox 100% on R/A; ap3 12:23 Body Mass Index 24.03 (53.98 kg, 149.86 cm) aa5 ED Course: 11:59 Patient arrived in ED. ds1 12:22 Arm band placed on. aa5 12:25 Triage completed. aa5 12:32 Farzaneh Dumont FNP-C is [facility]. kb 12:32 Neil Martinez MD is Attending Physician. kb 12:54 Alba Gonzalez, JULIO is Primary Nurse. ap3 12:56 Patient has correct armband on for positive identification. Bed in low position. Call ap3 light in reach. Side rails up X 1. Adult w/ patient. Pulse ox on. NIBP on. Door closed. Noise minimized. 13:16 US Transvaginal Study (Probe) In Process Unspecified. EDMS 14:00 Inserted saline lock: 20 gauge in left antecubital area, using aseptic technique. Blood dh4 collected. 15:36 No provider procedures requiring assistance completed. IV discontinued, intact, ap3 bleeding controlled, No redness/swelling at site. Pressure dressing applied. Administered Medications: No medications were administered Outcome: 15:29 Discharge ordered by . kb 15:39 Discharged to home ambulatory, with family. ap3 15:39 Condition: good 15:39 Discharge instructions given to patient, Instructed on discharge instructions, follow up and referral plans. Demonstrated understanding of instructions, follow-up care. 15:39 Patient left the ED. ap3 Signatures: Dispatcher [employer] EDVT Farzaneh Dumont FNP-C FNP-Ckb Olesya Fonseca ds1 Bibiana Rowe, RN RN aa5 Alba Gonzalez RN RN ap3 Anuel Andrew 4
[2021-02-11 16:05] VITALS: TEMP 98.6
[2021-02-11 16:10] VITALS: BP 104/75; O2SAT 100
== END 2021-02-11 15:39 | disposition home or self-care (01) ==
LOC: ER 11:58
DX: M79.10 Myalgia, unspecified site (principal); Z20.822 Contact with and (suspected) exposure to COVID-19; Z88.5 Allergy status to narcotic agent
CPT/HCPCS: 85025; 80048; 36415; 86308; 81025; 81003; 87804 ×2; 76830; 99284; U0003

== ENCOUNTER 2023-02-21 10:56 | Emergency (ER) | payer BC, OTHER ==
--- OUTSIDE RECORDS SUMMARY | 2023-02-21 11:08 | XMS REPORT | Continuity of Care Document ---
:1990 Author Organization [facility] [place] t Address [address] [facility] [address] [place] [id number] Care Team Providers Name Role Phone SIMON MIRELES Attending Clinician Unavailable Simon Mireles MD Attending Clinician Only, Adc Test Attending Clinician Unavailable Raffaele Foss MD Attending Clinician Gil Valverde Attending Clinician SIMON MIRELES Admitting Clinician Unavailable Simon Mireles MD Admitting Clinician Payers Payer Name Policy Type Policy Number Effective Date Expiration Date S 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 21:32:41 l (disorder) (disorder) He rmann Active Problem 10/20/2019 [facility] Simple Simple Problem Active 2019-10-20 Berto yahir obesity obesity 21:32:41 l (disorder) (disorder) He rmann Active Problem 10/20/2019 [facility] Spasm Spasm Problem Active 2019-10-20 Berto yahir (finding) (finding) 21:32:41 l Active [place] Problem 10/20/2019 [facility] Allergies, Adverse Reactions, Alerts Allergy Allergy Status Severity Reaction(s) Onset Inactive Treating Comm ents Source Name Type Date Date Clinician HYDROCOD DRUG Active Med ITCHING 2019-04 [facility] ONE INGREDI - ity of 00:00: [place] 00 Medical Branch Hydrocod Propensi Active Itching 2019-04 Unive rs one ty to ity of adverse 00:00: [place] reaction 00 Medical s Branch NO KNOWN Drug Active Univers ALLERGIE Class ity of S [facility] APAP/caf APAP/caf Active Memori a feine/CP feine/CP l M/hydroc M/hydroc Amarjit n odone/PE odone/PE Social History Social Habit Start Date Stop Date Quantity Comments Source Sex Assigned At [facility] Medical Branch Exposure to Not sure [facility] SARS-CoV-2 (event) Medica l [place] Tobacco use and 2020-04-25 2020-04-25 Never used [facility] exposure 00:00:00 00:00:00 Medical [place] Smoking Status Start Date Stop Date Source Unknown if ever smoked [facility] Social History [facility] Medications Ordered Filled Start Stop Current Ordering Indication Dosage Frequency Signature Comments Components Source Medication Medication Date Date Medication? Clinician (SIG) Name Name 2019-04 Yes Take by [facility] [place] [facility] qji902/iron 2-30 mouth. ity of /folic/om3 20:09: [place] (DUET DHA 56 Medical WITH Branch OMEGA-3 ORAL) HYDROmorpho 2019-04 Yes .2mg 0.2 mg, Uni vers ne 2-30 Slow IV ity of (DILAUDID) 18:37: [facility], [place] injection 18 Q5MIN PRN, Medi sandra 0.2 mg 5 doses, Branch Starting Thu04/25/20 at 1237, Until Discontinu ed, Routine, Pain (scale 4-6), Pain (scale 7-10), PACU
Us e approved by (Faculty): PACU USE -ANESTHESI A SERVICE-HY DROMORPHON E INJECTIONS FENTanyl PF 2019-04 Yes 25ug 25 mcg, Uni vers (SUBLIMAZE 2-30 Slow IV ity of (PF)) 18:37: Push, [place] injection 18 Q5MIN PRN, Medi sandra 25 mcg 4 doses, Branch Starting Thu04/25/20 at 1237, Until Discontinu ed, Routine, Pain (scale 4-6), PACU ondansetron 2019-04 Yes 4mg 4 mg, Slow Univers (ZOFRAN 2-30 IV Push, ity of (PF)) 18:37: PRN, 1 [place] injection 4 18 dose, Medical mg Starting Branch Thu04/25/20 at 1237, Until Discontinu ed, Routine, Nausea and Vomiting (N/V), PACU lactated 2019-04- No 1000mL at 42 Unive rs ringers IV 2-30 12-30 mL/hr, ity of infusion 16:15: 16:30 1,000 mL, [place] as 1,000 mL 00 :00 IV Medical Infusion, Branch ONCE, 1 dose, Thu04/25/20 at 1015, Routine, DSU Pre-op ceFAZolin 2019-04 Yes 1000mg 1,000 mg, U nivers (ANCEF) 2-30 IV ity of 1,000 mg in 16:01: Piggyback, [place] NaCl 0.9% 45 O.R. Medical (NS) 50 mL HOLDING Branch MINI-BAG ONCE, 1 dose, Starting Thu04/25/20 at 1001, Until Discontinu ed, 50 mL
Reas on for Anti-Infec tive: Surgical Prophylaxi s
Surgi sandra Prophylaxi s: Other (see Comments)< br>Duratio n of therapy: within 24 hours of surgery HYDROcodone 2019-04- No 4647 1{tbl} Take 1 U nivers -acetaminop 2-30 05-03 tablet by it y of hen 5-325 00:00: 05:59 mouth [place] mg tablet 00 :00 every 4 Medical (four) Branch hours as needed for Pain (scale 7-10) for up to 7 days. Indication s: acute pain oxcarbazepi Yes 150 mg = 1 Memoria ne 150 MG 5-12 tab, PO, l Oral Tablet 17:24: BID, # 60 H ermann [Trileptal] 00 tab, 3 Refill(s) Latuda 2019-0 Yes 20 mg, PO, Memor ia 5-12 Bedtime, 0 l 16:42: Refill(s) [place] 00 quetiapine 2019-0 No 25 mg, PO, M emoria 4-28 Bedtime, 0 l 14:53: Refill(s) [place] 00 venlafaxine Yes 75 mg, PO, Memoria 08-22 Bedtime, 0 l 14:53: Refill(s) Dar[place] 00 gabapentin Yes 100 mg, Berto yahir 08-22 PO, TID, 0 l 14:53: Refill(s) [place] 00 Acidophilus Yes 100 mg =, M emoria - PO, Daily, l 14:53: 0 [place] 00 Refill(s) Vital Signs Vital Name Observation Time Observation Value Comments Source Systolic blood 2020-04-25 19:34:00 93 mm[Hg] [facility]iver [facility] Diastolic blood 2020-04-25 19:34:00 63 mm[facility]Hg[facility] [place] Heart rate 2020-04-25 19:34:00 90 /min [facility] Respiratory rate 2020-04-25 19:34:00 16 /min [facility] Oxygen saturation in 2020-04-25 19:34:00 95 /min [facility] Arterial blood by [facility] Pulse oximetry Branch Body temperature 2020-04-25 19:16:00 36.56 Aysha [facility] Body height 2020-04-24 17:00:00 149.9 cm [facility] Body weight 2020-04-24 17:00:00 68.493 kg [facility] BMI 2020-04-24 17:00:00 30.50 kg/m2 [facility] Respitory Rate 2019-09-06 16:37:00 Regina lemons [place] Temperature Oral (F) 2019-09-06 16:37:00 98.6 F [facility] Height 2019-09-06 16:37:00 149.86 cm [facility] Weight 2019-09-06 16:37:00 [facility] BMI Calculated 2019-09-06 16:37:00 Memori al Darion Systolic (mm Hg) 2019-09-06 16:37:00 Berto rial Darion Diastolic (mm Hg) 2019-09-06 16:37:00 Mem orial [place] Heart Rate 2019-09-06 16:37:00 [facility]ion Systolic (mm Hg) 2019-08-23 14:46:00 Berto rial Darion Diastolic (mm Hg) 2019-08-23 14:46:00 Saul [place] Heart Rate 2019-08-23 14:46:00 Camacho [place] Respitory Rate 2019-08-23 14:46:00 Regina Pandey Temperature Oral (F) 2019-08-23 14:46:00 97.1 F Camacho [place] Height 2019-08-23 14:46:00 149.86 cm Camacho [place] Weight 2019-08-23 14:46:00 Camacho [place] BMI Calculated 2019-08-23 14:46:00 Regina Pandey Procedures Procedure Date / Time Performed Performing Clinician Sour e POCT TEST 2020-04-25 16:21:00 Letty Kim [facility] CONSENT/REFUSAL FOR 2020-04-24 15:55:24 [facility]igned, [facility] CONSENT/REFUSAL FOR 2020-04-24 15:55:07 [facility] TREAT[facility] ASSIGNMENT OF BENEFITS 2020-04-24 15:54:34 Doctor Unassigned, No [facility] ASSIGNMENT OF BENEFITS 2020-04-24 15:54:15 Doctor Unassigned, No [facility] DSU PRE-OP 2020-04-23 06:01:00 Doctor Unassigned, No [facility] Hernia repair [facility] Lumbar puncture [facility] Encounters Start End Encounter Admission Attending Care Care Encounter Source Date/Time Date/Time Type Type Clinicians Facility Department ID 2021-02-23 Outpatient R [facility] JENNIFER [id number] Univers 13:28:39 SIMON [facility] 2020-04-25 2020-04-25 Hospital [facility] [id number] Univers 10:07:00 14:09:00 Encounter Simon Richard [id number] ity yumiko Ro[place] [id number] [place] [id number] [facility] 071 Branch 2020-04-24 2020-04-24 Laboratory Only, Adc Test [facility] [id number] Univers 09:52:52 10:07:52 Only Raffaele Foss [id number] [facility] [id number] [facility] [id number] [address] 2020-04-24 2020-04-[address] [facility] [id number] Univers 09:15:00 09:15:00 ity [facility] 2019-10-18 2019-10-18 Ambulatory nullFlavo MNA [id number] Memoria 14:45:00 14:45:00 Pre-Reg r Neurology 02 l Melvina Orlando 2019-10-18 2019-10-18 Outpatient MHIE MHIE [id number] Memoria 09:45:00 09:45:00 02 rodney [place] 2019-10-18 2019-10-18 Outpatient MANUELA ValverdeSCHFRANCHESCA MHMISCHER [id number] 09:45:00 09:45:00 Gil 02 Remi 2019-09-06 2019-09-07 Outpatient nullFlavo MNA [id number] Memoria 16:15:00 04:59:59 r Neurology 01 rodney Orlando 2019-09-06 2019-09-06 Outpatient ONEIL ValverdeMISCHER [id number] 11:15:00 23:59:59 Gil 01 Remi 2019-09-06 2019-09-06 Outpatient MHIE MHIE [id number] Memoria 11:15:00 11:15:00 01 rodney Orlando 2019-08-23 2019-08-24 Outpatient nullFlavo MNA [id number] Memoria 14:30:00 04:59:59 r Neurology 00 l Melvina Orlando 2019-08-23 2019-08-23 Outpatient ONEIL ValverdeMISCHFRANCHESCA [id number] 09:30:00 23:59:59 Gil 00 Remi 2019-08-23 2019-08-23 Outpatient MHIE MHIE [id number] Memoria 09:30:00 09:30:00 00 rodney Orlando Results Test Description Test Time Test Comments Results Result Comments Source POCT Test 2020-04-25 16:21:00 Test Item Value Reference Range Interpretation Comme nts POCT PREG (test code = 1605) Negative On board controls acceptable with C Line (test code = 3574) Yes POCT PREG LOT # (test code = 3575) [id number] POCT PREG TEST DATE (test code = 3576) 2021-08-24 Lab Interpretation (test code = 05592-3) [facility]
[2023-02-21] MEDS ORDERED: ONDANSETRON 4 MG/2 ML VIAL ONE (12:06)
[2023-02-21] MEDS ORDERED: NA CHLORIDE 0.9% 1,000 ML ONE (12:06)
[2023-02-21] MEDS ORDERED: MORPHINE 4 MG/ML SYR ONE (12:06)
[2023-02-21] MEDS ORDERED: KETOROLAC 30 MG/ML INJ ONE (12:07)
[2023-02-21 12:27] LABS: Absolute Lymphocytes (CBC) 2.1 K/uL (0.7-4.9); Hematocrit 46.1 % (36.0-45.0); Lymphocytes % 33.2 % (15.3-44.8); MCV 92.4 fL (80-100); MPV 8.5 fL (7.6-11.3); Platelets 245 thou/uL (152-406); RBC Red Blood Cell Count 4.99 M/uL (3.86-4.86); Specific Gravity 1.025 (1.005-1.030)
[2023-02-21 12:45] LABS: Albumin 4.5 g/dL (3.4-5.0); Potassium 3.9 mEq/L (3.5-5.1); Protein, Total 8.4 g/dL (6.4-8.2)
--- NOTE | 2023-02-21 13:31 | RAD REPORT ---
EXAM DESCRIPTION: CTAbdomen Pelvis W Contrast - 02/21/2023 1:21 pm CLINICAL HISTORY: ABD PAIN COMPARISON: Stone Protocol dated 12/31/2022 TECHNIQUE: CT of the abdomen and pelvis was performed. All CT scans are performed using dose optimization technique as appropriate and may include automated exposure control or mA/KV adjustment according to patient size. FINDINGS: Lower chest: No acute abnormality. Liver: No acute abnormality or suspicious lesions. Biliary: No biliary ductal dilatation. Stomach: No significant focal abnormality. Duodenum: No significant focal abnormality. Pancreas: No significant abnormality. Spleen: No significant abnormality. Adrenal: No suspicious lesions. Kidney/ureter: Moderate right-sided hydroureteronephrosis. 5 mm stone at the right UVJ which is new f rom prior. Too small to characterize and/or benign appearing renal lesions are noted. Retroperitoneum: No retroperitoneal adenopathy. Vascular: No aneurysm. Bowel: No significant focal abnormality. Normal appendix . Peritoneum: Small volume of nonspecific pelvic free fluid. Bladder: Grossly unremarkable. Reproductive: No adnexal masses. Bones: No acute fracture. Os stimulator. Other: n/a IMPRESSION: Moderate right-sided hydroureteronephrosis secondary to a 5 mm stone at the right UVJ.
[2023-02-21] MEDS ORDERED: DIAZEPAM 10 MG/2 ML INJ SYRINGE ONE ×2 (14:34→19:57)
[2023-02-21 16:28] LABS: Renal Epithelial <5 /HPF (None Seen); Specific Gravity 1.025 (1.005-1.030); Urine Bacteria None Seen /HPF (<20); Urine Bilirubin NEGATIVE (Negative); Urine Blood 1+ (Negative); Urine Clarity Turbid (Clear); Urine Color Yellow (Yellow); Urine Glucose NEGATIVE (Negative); Urine Mucus 1+ /HPF (None Seen); Urine Protein TRACE (Negative); Urine RBC 21-50 /HPF (None Seen); Urine Urobilinogen Normal (Normal); Urine pH 6.5 (5.0-7.0)
--- NOTE | 2023-02-21 16:56 | EDPHYS ---
Physician Documentation [facility] Name: Hawa Alaniz Age: 32 yrs Sex: Female : 1990 Arrival Date: 02/21/2023 Time: 10:56 Bed 9 Private MD: ED Physician Aba Che HPI: 02/21 12:24 This 32 yrs old Female presents to ER via Ambulatory with complaints of Possible Kidney sb4 Stone, Low Back Pain, Side Pain. 12:25 The patient complains of pain in the right low back. The pain radiates to the right sb4 lower quadrant. 18:07 Onset: The symptoms/episode began/occurred 2 week(s) ago, and became worse this sb4 morning. Modifying factors: The symptoms are alleviated by nothing. the symptoms are aggravated by nothing. Associated signs and symptoms: Pertinent positives: nausea, Pertinent negatives: dysuria, fever. The patient has experienced a previous episode. The patient has been recently seen at the [facility] Emergency Department, a couple of weeks ago. Historical: - Allergies: 11:09 Hydrocodone; hb - PMHx: 11:09 complex regional pain syndrome; IUD in place; hb - PSHx: 11:09 hemorroidectomy; hernia repair; Spinal Cord Stimulator; hb - Immunization history:: Adult Immunizations up to date. - Social history:: Smoking status: Patient denies any tobacco usage or history of. ROS: 18:07 Constitutional: Negative for fever, chills, and weight loss, sb4 18:07 Abdomen/GI: Positive for nausea and vomiting, 18:07 Back: Positive for flank pain, on the right, radiated pain, 18:07 : Positive for urinary symptoms, small amounts, difficulty urinating, 18:07 All other systems are negative, Exam: 18:07 Constitutional: This is a well developed, well nourished patient who is awake, alert, sb4 and in no acute distress. Head/Face: Normocephalic, atraumatic. Eyes: Extra-ocular motions intact. Periorbital areas with no swelling, redness, or edema. ENT: Mucous membranes moist. Cardiovascular: Regular rate and rhythm with a normal S1 and S2. Respiratory: Lungs have equal breath sounds bilaterally, clear to auscultation and percussion. No rales, rhonchi or wheezes noted. No increased work of breathing, no retractions or nasal flaring. Abdomen/GI: Soft, non-tender, no distension. Skin: Warm, dry with normal turgor. Normal color with no rashes, no lesions, and no evidence of cellulitis. MS/ Extremity: Pulses equal, no cyanosis. Neurovascular intact. Full, normal range of motion. Neuro: Awake and alert, GCS 15, oriented to person, place, time, and situation. Motor strength 5/5 in all extremities. Sensory grossly intact. 18:07 Back: normal spinal alignment noted, CVA tenderness, that is moderate, is noted on the right, muscle spasm, is appreciated in the right low back, Vital Signs: 11:07 BP 102 / 80; Pulse 107; Resp 18; Temp 98.6(TE); Pulse Ox 100% on R/A; Weight 51.71 kg; hb Height 4 ft. 11 in. ; Pain 10/10; 13:06 BP 107 / 69; Pulse 77; Resp 16; Pulse Ox 100% ; Pain 6/10; jl7 18:37 BP 90 / 61; Pulse 74; Resp 16; Pulse Ox 100% on R/A; Pain 5/10; iw 19:15 BP 96 / 68; Pulse 61; Resp 16; Temp 98.6(O); Pulse Ox 100% ; Pain 5/10; pf1 19:45 BP 108 / 61; Pulse 65; Resp 16; Pulse Ox 100% on R/A; Pain 5/10; pf1 11:07 Body Mass Index 23.02 (51.71 kg, 149.86 cm) hb 11:07 Pain Scale: Adult hb 13:06 Pain Scale: Adult jl7 18:37 Pain Scale: Adult iw 19:15 Pain Scale: Adult pf1 19:45 Pain Scale: Adult pf1 MDM: 11:11 Patient medically screened. sb4 18:07 Differential diagnosis: nephrolithiasis, pyelonephritis, UTI. sb4 18:09 Data reviewed: vital signs, nurses notes, lab test result(s), radiologic studies. sb4 02/21 11:12 Order name: CBC with Diff; Complete Time: 12:36 sb4 02/21 11:12 Order name: CMP; Complete Time: 12:49 sb4 02/21 11:12 Order name: Lipase; Complete Time: 12:49 sb4 02/21 11:12 Order name: Test, Urine; Complete Time: 12:33 sb4 02/21 13:38 Order name: UAM; Complete Time: 16:29 sb4 02/21 11:12 Order name: CT Abd/Pelvis - IV Contrast Only; Complete Time: 13:36 sb4 02/21 11:12 Order name: IV Saline Lock; Complete Time: 11:50 sb4 02/21 11:12 Order name: Labs collected and sent; Complete Time: 11:51 sb4 Administered Medications: 12:20 Drug: NS 0.9% IV 1000 ml IV at 1 bolus Per protocol; 1000 mL bolus Route: IV; Rate: 1 jl7 bolus; Site: left antecubital; 19:00 Follow up: Response: No adverse reaction; Marked relief of symptoms; IV Status: pf1 Completed infusion; IV Intake: 1000ml 12:20 Drug: TORadol - Ketorolac IVP 15 mg IVP once Route: IVP; Site: left antecubital; jl7 19:00 Follow up: Response: No adverse reaction; Marked relief of symptoms; Pain is decreased pf1 12:20 Drug: Ondansetron IVP 4 mg IVP once; over 2 minutes Route: IVP; Site: left antecubital; jl7 19:00 Follow up: Response: No adverse reaction; Marked relief of symptoms pf1 12:20 Drug: morphine IVP or IV 4 mg IVP once over 4 mins Route: IVP; Infused Over: 4 mins; jl7 Site: left antecubital; 19:00 Follow up: Response: No adverse reaction; Marked relief of symptoms; Pain is decreased; pf1 RASS: Alert and Calm (0) 14:26 Drug: Diazepam IVP 5 mg IVP once Route: IVP; Site: left antecubital; jl7 19:00 Follow up: Response: No adverse reaction; Marked relief of symptoms; Pain is decreased; pf1 RASS: Alert and Calm (0) 19:42 Not Given (Patient Refused): hydrocodone-acetaminophen(7.5 mg-325 mg) 1 tabs PO once pf1 19:45 Drug: Diazepam IVP 5 mg IVP once Route: IVP; Site: left antecubital; nj1 19:56 Follow up: Response: No adverse reaction; Marked relief of symptoms; RASS: Alert and pf1 Calm (0) 20:01 CANCELLED (patient transferred with basic EMS): ns 0.9% 1000 ml IV at 1 bolus Per pf1 protocol; 1000 mL bolus Disposition Summary: 02/21/23 16:56 Transfer Ordered Notes: Transfer Location: [facility] sb4 Reason: Higher level of care sb4 Condition: Fair sb4 Problem: new sb4 Symptoms: are unchanged sb4 Accepting Physician: Dr. Vasquez(02/21/23 20:12) pf1 Diagnosis - 5mm right UPJ calculus with moderate hydronephrosis sb4 Forms: - Medication Reconciliation Form sb4 - SBAR form sb4 Addendum: 02/23/2023 10:56 I was immediately available for consultation during this patient's visit. I did not e c2 personally see the patient or guide the patient's care.. Signatures: Dispatcher [employer] EDDilia Chen RN RN Martita Casas RN RN jl7 Amalia Tomlinson PA-C PAKielC sb4 Lizzie Montalvo RN RN pf1 Toña Pink RN RN nj1 Aba Che MD MD ec2 Corrections: (The following items were deleted from the chart) 02/21 11:10 11:09 Allergies: [place]; hb hb 19:58 16:56 urology sb4 sb4 20:01 19:38 NS 0.9% IV 1000 ml IV at 1 bolus Per protocol; 1000 mL bolus ordered. sb4 pf1 20:12 19:58 Dr. Vasquez sb4 pf1
--- NOTE | 2023-02-21 16:56 | ER ---
Nurse's Notes [facility] Name: Hawa Alaniz Age: 32 yrs Sex: Female : 1990 Arrival Date: 02/21/2023 Time: 10:56 Bed 9 Private MD: Diagnosis: 5mm right UPJ calculus with moderate hydronephrosis Presentation: 02/21 11:07 Chief complaint: Right flank pain, nausea, and difficulty urinating that started this hb morning. Recently seen in ED for kidney stones. Coronavirus screen: At this time, the client does not indicate any symptoms associated with coronavirus-19. Ebola Screen: No symptoms or risks identified at this time. Initial Sepsis Screen: Does the patient meet any 2 criteria? No. Patient's initial sepsis screen is negative. Does the patient have a suspected source of infection? No. Patient's initial sepsis screen is negative. Risk Assessment: Do you want to hurt yourself or someone else? Patient reports no desire to harm self or others. Onset of symptoms was February 21, 2023. 11:07 Method Of Arrival: Ambulatory hb 11:07 Acuity: KADE 3 hb Historical: - Allergies: 11:09 Hydrocodone; hb - PMHx: 11:09 complex regional pain syndrome; IUD in place; hb - PSHx: 11:09 hemorroidectomy; hernia repair; Spinal Cord Stimulator; hb - Immunization history:: Adult Immunizations up to date. - Social history:: Smoking status: Patient denies any tobacco usage or history of. Screenin:26 [facility] ED Fall Risk Assessment (Adult) Score/Fall Risk Level 0 - 2 = Low Risk. Abuse iw screen: Denies threats or abuse. Denies injuries from another. Nutritional screening: No deficits noted. Tuberculosis screening: No symptoms or risk factors identified. Assessment: 17:00 Reassessment: Patient appears in no apparent distress at this time. Patient and/or iw family updated on plan of care and expected duration. Pain level reassessed. Patient is alert, oriented x 3, equal unlabored respirations, skin warm/dry/pink. 19:15 Reassessment: Nurse report given by JULIO Sommers to receiving nurse at the [place]. pf1 19:56 Reassessment: patient report given to [facility]. Patient being pf1 transferred at this time. Vital Signs: 11:07 BP 102 / 80; Pulse 107; Resp 18; Temp 98.6(TE); Pulse Ox 100% on R/A; Weight 51.71 kg; hb Height 4 ft. 11 in. ; Pain 10/10; 13:06 BP 107 / 69; Pulse 77; Resp 16; Pulse Ox 100% ; Pain 6/10; jl7 18:37 BP 90 / 61; Pulse 74; Resp 16; Pulse Ox 100% on R/A; Pain 5/10; iw 19:15 BP 96 / 68; Pulse 61; Resp 16; Temp 98.6(O); Pulse Ox 100% ; Pain 5/10; pf1 19:45 BP 108 / 61; Pulse 65; Resp 16; Pulse Ox 100% on R/A; Pain 5/10; pf1 11:07 Body Mass Index 23.02 (51.71 kg, 149.86 cm) hb 11:07 Pain Scale: Adult hb 13:06 Pain Scale: Adult jl7 18:37 Pain Scale: Adult iw 19:15 Pain Scale: Adult pf1 19:45 Pain Scale: Adult pf1 ED Course: 10:59 Patient arrived in ED. mg5 11:04 Amalia Tomlinson PA-C is PHCP. sb4 11:04 Aba Che MD is Attending Physician. sb4 11:09 Triage completed. hb 11:09 Arm band placed on. hb 11:50 Dilia Meadows, JULIO is Primary Nurse. hb 12:20 Initial lab(s) drawn, by wa, sent to lab. Urine collected: clean catch specimen, clear. jl7 Inserted saline lock: 20 gauge in left antecubital area, using aseptic technique. Blood collected. 13:23 CT Abd/Pelvis - IV Contrast Only In Process Unspecified. EDMS 16:16 UAM Sent. bc6 17:15 initiated a transfer with Jagdish with the [place] transfer center/. eb 17:45 faxed patient record after facesheet updated to Jagdish at the [place] transfer center. eb 19:00 Patient has correct armband on for positive identification. Bed in low position. Call pf1 light in reach. 19:07 Pt accepted to [place] ER by Dr. Garcia. rv1 19:27 [facility], gave wrong accepting DrIrving name. Accepting doc is Dr. roger Vasquez. 19:55 Provided Education on: need for transfer. pf1 19:55 Patient transferred, IV remains in place. pf1 19:55 No provider procedures requiring assistance completed. pf1 Administered Medications: 12:20 Drug: NS 0.9% IV 1000 ml IV at 1 bolus Per protocol; 1000 mL bolus Route: IV; Rate: 1 jl7 bolus; Site: left antecubital; 19:00 Follow up: Response: No adverse reaction; Marked relief of symptoms; IV Status: pf1 Completed infusion; IV Intake: 1000ml 12:20 Drug: TORadol - Ketorolac IVP 15 mg IVP once Route: IVP; Site: left antecubital; jl7 19:00 Follow up: Response: No adverse reaction; Marked relief of symptoms; Pain is decreased pf1 12:20 Drug: Ondansetron IVP 4 mg IVP once; over 2 minutes Route: IVP; Site: left antecubital; jl7 19:00 Follow up: Response: No adverse reaction; Marked relief of symptoms pf1 12:20 Drug: morphine IVP or IV 4 mg IVP once over 4 mins Route: IVP; Infused Over: 4 mins; jl7 Site: left antecubital; 19:00 Follow up: Response: No adverse reaction; Marked relief of symptoms; Pain is decreased; pf1 RASS: Alert and Calm (0) 14:26 Drug: Diazepam IVP 5 mg IVP once Route: IVP; Site: left antecubital; jl7 19:00 Follow up: Response: No adverse reaction; Marked relief of symptoms; Pain is decreased; pf1 RASS: Alert and Calm (0) 19:42 Not Given (Patient Refused): hydrocodone-acetaminophen(7.5 mg-325 mg) 1 tabs PO once pf1 19:45 Drug: Diazepam IVP 5 mg IVP once Route: IVP; Site: left antecubital; nj1 19:56 Follow up: Response: No adverse reaction; Marked relief of symptoms; RASS: Alert and pf1 Calm (0) 20:01 CANCELLED (patient transferred with basic EMS): ns 0.9% 1000 ml IV at 1 bolus Per pf1 protocol; 1000 mL bolus Medication: 19:55 VIS not applicable for this client. pf1 Intake: 19:00 IV: 1000ml; Total: 1000ml. pf1 Outcome: 16:56 ER care complete, transfer ordered by MD. chua 19:55 Transferred by ground EMS to [facility] pf1 19:55 Condition: stable 19:55 Instructed on the need for transfer, Demonstrated understanding of instructions, 19:55 Patient left the ED. pf1 Signatures: Dispatcher [employer] EDTootie Olson RN RN Dilia Meadows RN RN Martita Casas RN RN jl7 Marie Helm Sophia PAKielC PA-C sb4 Lizzie Montalvo RN RN pf1 Karon Villatoro rv1 Mamie Gee bc6 Toña Pink RN RN nj1 Thais Sr mg5 Corrections: (The following items were deleted from the chart) 11:10 11:09 Allergies: [place]; hb hb 02/22 04:49 10 20:12 Patient left the ED. pf1 pf1
[2023-02-21] MEDS ORDERED: HYDROCODONE/APAP 7.5/325 MG TAB ONE (19:40)
[2023-02-21 20:27] VITALS: TEMP 98.6; O2SAT 100
[2023-02-21 20:36] VITALS: BP 108/61
== END 2023-02-21 20:12 | disposition short-term general hospital (02) ==
LOC: ER 10:56
DX: N13.2 Hydronephrosis with renal and ureteral calculous obstruction (principal); Z88.5 Allergy status to narcotic agent
CPT/HCPCS: 96361; 85025; 81001; 36415; 81025; 83690; 80053; 74177; 96375; 96374; 99285; Q9967; J3360 ×2; J2405; J7030

== ENCOUNTER 2023-02-24 15:45 | Observation (INO) | payer BC, OTHER ==
--- OUTSIDE RECORDS SUMMARY | 2023-02-24 15:49 | XMS REPORT | Continuity of Care Document ---
:1990 Author Organization [facility] t Address [address] [facility] [address] [place] [id number] Care Team Providers Name Role Phone SIMON MIRELES Attending Clinician Unavailable Simon Mireles MD Attending Clinician Only, Adc Test Attending Clinician Unavailable Raffaele Foss MD Attending Clinician Gil Valverde Attending Clinician SIMON MIRELES Admitting Clinician Unavailable Simon Mireles MD Admitting Clinician Payers Payer Name Policy Type Policy Number Effective Date Expiration Date S [facility] - [id number] 2016 00:00:00 OUT OF STATE Problems Condition Condition Condition Status Onset Resolution Last Treating Co mments Source Name Details Category Date Date Treatment Clinician Date Spasm Spasm Problem Active 2019-10-20 [facility] (finding) (finding) 21:32:41 l Active Darion Problem 10/20/2019 [facility] Complex Complex Problem Active 2019-10-20 [facility] regional regional 21:32:41 l pain pain Darion syndrome, syndrome, type II type II (disorder) (disorder) Active Problem 10/20/2019 [facility] Cramp in Cramp in Problem Active 2019-10-20 [facility] limb limb 21:32:41 l (finding) (finding) Herm carmelina Active Problem 10/20/2019 [facility] Panic Panic Problem Active 2019-10-20 [facility] disorder disorder 21:32:41 l (disorder) (disorder) He rmann Active Problem 10/20/2019 [facility] Simple Simple Problem Active 2019-10-20 Mem oria obesity obesity 21:32:41 l (disorder) (disorder) He rmann Active Problem 10/20/2019 [facility] Allergies, Adverse Reactions, Alerts Allergy Allergy Status Severity Reaction(s) Onset Inactive Treating Comm ents Source Name Type Date Date Clinician HYDROCOD DRUG Active Med ITCHING 2019-04 [facility] ONE INGREDI 2- ity of 00:00: [place] 00 Medical Branch Hydrocod Propensi Active Itching 2019-04 Unive rs one ty to -29 ity of adverse 00:00: [place] reaction 00 Medical s Branch APAP/caf APAP/caf Active Memori a feine/CP feine/CP l M/hydroc M/hydroc Amarjit n odone/PE odone/PE NO KNOWN Drug Active Univers ALLERGIE Class ity of [facility] Social History Social Habit Start Date Stop Date Quantity Comments Source Sex Assigned At [facility] Medical Branch Exposure to Not sure [facility] SARS-CoV-2 (event) [facility] Tobacco use and 2020-04-25 2020-04-25 Never used [facility] exposure 00:00:00 00:00:00 [facility] Smoking Status Start Date Stop Date Source Unknown if ever smoked [facility] Social History [facility] Medications Ordered Filled Start Stop Current Ordering Indication Dosage Frequency Signature Comments Components Source Medication Medication Date Date Medication? Clinician (SIG) Name Name 2019-04 Yes Take by [facility] fzz059/iron 2-30 mouth. ity of /folic/om3 20:09: [place] ([facility] 56 Medical WITH Branch OMEGA-3 ORAL) HYDROmorpho 2019-04 Yes .2mg 0.2 mg, Uni vers ne 2-30 Slow IV ity of (DILAUDID) 18:37: [facility], [place] injection 18 Q5MIN PRN, Medi sandra 0.2 mg 5 doses, Branch Starting Thu04/25/20 at 1237, Until Discontinu ed, Routine, Pain (scale 4-6), Pain (scale 7-10), PACU
Us e approved by (Faculty): PACU USE -ANESTHESI A SERVICE-HY DROMORPHON E INJECTIONS FENTanyl PF 2019-04 Yes 25ug 25 mcg, Uni vers (SUBLIMAZE 2-30 Slow IV ity of (PF)) 18:37: Push, [place] injection 18 Q5MIN PRN, Medi sandra 25 [...] IV Medical Infusion, Branch ONCE, 1 dose, 04/25/20 at 1015, Routine, DSU Pre-op ceFAZolin 2019-04 Yes 1000mg 1,000 mg, U nivers (ANCEF) 2-30 IV ity of 1,000 mg in 16:01: Piggyback, [place] NaCl 0.9% 45 O.R. Medical (NS) 50 [...] 7 days. Indication s: acute pain oxcarbazepi 2020-0 Yes 150 mg = 1 Memoria ne 150 MG 5-12 tab, PO, l Oral Tablet 17:24: BID, # 60 H ermann [Trileptal] 00 tab, 3 Refill(s) oxcarbazepi 2020-0 Yes 150 mg = 1 Memoria ne 150 MG 5-12 tab, PO, l Oral Tablet 17:24: BID, # 60 H ermann [Trileptal] 00 tab, 3 Refill(s) oxcarbazepi 2020-0 Yes 150 mg = 1 Memoria ne 150 MG 5-12 tab, PO, l Oral Tablet 17:24: BID, # 60 H ermann [Trileptal] 00 tab, 3 Refill(s) Latuda 2020-0 Yes 20 mg, PO, Memor ia 5-12 Bedtime, 0 l 16:42: Refill(s) Latuda 2020-0 Yes 20 mg, PO, Memor ia 5-12 Bedtime, 0 l 16:42: Refill(s) Latuda 2020-0 Yes 20 mg, PO, Memor ia 5-12 Bedtime, 0 l 16:42: Refill(s) quetiapine 2020-0 No 25 mg, PO, M emoria 08-22 Bedtime, 0 l 14:53: Refill(s) venlafaxine 2020-0 Yes 75 mg, PO, Memoria 08-22 Bedtime, 0 l 14:53: Refill(s) gabapentin 2020-0 Yes 100 mg, Berto yahir -28 PO, TID, 0 l 14:53: Refill(s) Acidophilus 2020-0 Yes 100 mg =, M emoria - PO, Daily, l 14:53: 0 Refill(s) quetiapine 2020-0 No 25 mg, PO, M emoria 08-22 Bedtime, 0 l 14:53: Refill(s) venlafaxine 2020-0 Yes 75 mg, PO, Memoria 08-22 Bedtime, 0 l 14:53: Refill(s) gabapentin 2020-0 Yes 100 mg, Berto yahir -28 PO, TID, 0 l 14:53: Refill(s) Acidophilus 2020-0 Yes 100 mg =, M emoria 4-28 PO, Daily, l 14:53: 0 Refill(s) quetiapine 2020-0 No 25 mg, PO, M emoria -28 Bedtime, 0 l 14:53: Refill(s) venlafaxine 2020-0 Yes 75 mg, PO, Memoria 28 Bedtime, 0 l 14:53: Refill(s) gabapentin 2020-0 Yes 100 mg, Berto yahir 4-28 PO, TID, 0 l 14:53: Refill(s) Darion 00 Acidophilus Yes 100 mg =, M emoria 08-22 PO, Daily, l 14:53: 0 [place] 00 Refill(s) Vital Signs Vital Name Observation Time Observation Value Comments Source Respiratory rate 2020-04-25 19:34:00 16 /min [facility] Oxygen saturation in 2020-04-25 19:34:00 95 /min [facility] Arterial blood by [facility] Pulse oximetry Branch Systolic blood 2020-04-25 19:34:00 93 mm[Hg] Univer sity of [facility] Diastolic blood 2020-04-25 19:34:00 63 mm[facility]Hg[facility] 2020-04-25 19:34:00 90 /min [facility] Body temperature 2020-04-25 19:16:00 36.56 Aysha [facility] Body height 2020-04-24 17:00:[address] [facility] Body weight 2020-04-24 17:00:[address] [facility] BMI 2020-04-24 17:00:00 30.50 kg/m2 [facility] Systolic (mm Hg) 2019-09-06 16:37:00 Berto rial [place] Diastolic (mm Hg) 2019-09-06 16:37:00 Mem orial [place] Heart Rate 2019-09-06 16:37:00 [facility] [place] Respitory Rate 2019-09-06 16:37:00 Memori al [place] Temperature Oral (F) 2019-09-06 16:37:[address] [facility] Height 2019-09-06 16:37:[address] [facility] Weight 2019-09-06 16:37:00 [facility] [place] BMI Calculated 2019-09-06 16:37:00 Memori al [place] Systolic (mm Hg) 2019-08-23 14:46:00 Berto rial [place] Diastolic (mm Hg) 2019-08-23 14:46:00 Mem orial [place] Heart Rate 2019-08-23 14:46:00 [facility] [place] Respitory Rate 2019-08-23 14:46:00 Memori al [place] Temperature Oral (F) 2019-08-23 14:46:00 97.1 F Camacho [place] Height 2019-08-23 14:46:00 149.86 cm Camacho [place] Weight 2019-08-23 14:46:00 Camacho [place] BMI Calculated 2019-08-23 14:46:00 Regina Pandey Procedures Procedure Date / Time Performed Performing Clinician Sourc e POCT TEST 2020-04-25 16:21:00 Letty Kim [facility] CONSENT/REFUSAL FOR 2020-04-24 15:55:24 Doctor Unassigned, No Un iversity [facility] DIAGNOSIS AND [facility] TREATMENT CONSENT/REFUSAL FOR 2020-04-24 15:55:07 Doctor Unassigned, No [facility] TREATMENT ASSIGNMENT OF BENEFITS 2020-04-24 15:54:34 Doctor Unassigned, No [facility] ASSIGNMENT OF BENEFITS 2020-04-24 15:54:15 Doctor Unassigned, No [facility] DSU PRE-OP 2020-04-23 06:01:00 Doctor Unassigned, No [facility] Hernia repair [facility] Lumbar puncture [facility] Encounters Start End Encounter Admission Attending Care Care Encounter Source Date/Time Date/Time Type Type Clinicians Facility Department ID 2021-02-23 Outpatient R [facility] JENNIFER [id number] Univers 13:28:39 [facility] 2020-04-25 2020-04-25 Hospital Chi [facility] [id number] Univers 10:07:00 14:09:00 Encounter [id number] [id number] s Surgical [id number] [facility] 071 Branch 2020-04-24 2020-04-24 Laboratory Only, Adc Test [facility] [id number] Univers 09:52:52 10:07:52 Only Raffaele Foss [id number] ity [facility] [id number] [id number] [facility] 353 Branch 2020-04-24 2020-04-24 Outpatient R [facility] [id number] Univers 09:15:00 09:15:00 ity [facility] 2019-10-18 2019-10-18 Ambulatory nullFlavo MNA [id number] Memoria 14:45:00 14:45:00 Pre-Reg r Neurology 02 l Melvina Orlando 2019-10-18 2019-10-18 Ambulatory nullFlavo MNA [id number] Memoria 14:45:00 14:45:00 Pre-Reg r Neurology 02 l Melvina Bowersann 2019-10-18 2019-10-18 Outpatient MHIE MHIE [id number] Memoria 09:45:00 09:45:00 02 rodney [place] 2019-10-18 2019-10-18 Outpatient AMINA ValverdeMISCHER MISCHER [id number] 09:45:00 09:45:00 Gil 02 Remi 2019-09-06 2019-09-07 Outpatient nullFlavo MNA [id number] Memoria 16:15:00 04:59:59 r Neurology 01 l [place] Bowersann 2019-09-06 2019-09-07 Outpatient nullFlavo MNA [id number] Memoria 16:15:00 04:59:59 r Neurology 01 l Melvina Orlando 2019-09-06 2019-09-06 Outpatient MANUELA ValverdeSCHER MISCHER [id number] 11:15:00 23:59:59 Gil 01 Remi 2019-09-06 2019-09-06 Outpatient MHIE MHIE [id number] Memoria 11:15:00 11:15:00 01 rodney Orlando 2019-08-23 2019-08-24 Outpatient nullFlavo MNA [id number] Memoria 14:30:00 04:59:59 r Neurology 00 l [place] Darion 2019-08-23 2019-08-24 Outpatient nullFlavo MNA [id number] Memoria 14:30:00 04:59:59 r Neurology 00 l Melvina Orlando 2019-08-23 2019-08-23 Outpatient AMINA ValverdeMISCHER MHMISCHER [id number] 09:30:00 23:59:59 Gil 00 Remi 2019-08-23 2019-08-23 Outpatient MHIE MHIE [id number] Memoria 09:30:00 09:30:00 00 rodney Orlando Results Test Description Test Time Test Comments Results Result Comments Source POCT Test 2020-04-25 16:21:00 Test Item Value Reference Range Interpretation Comme nts POCT PREG (test code = 1605) Negative On board controls acceptable with C Line (test code = 3574) Yes POCT PREG LOT # (test code = 3575) [id number] POCT PREG TEST DATE (test code = 3576) 2021-08-24 Lab Interpretation (test code = 39854-6) [facility]
[2023-02-24] MEDS ORDERED: ONDANSETRON 4 MG/2 ML VIAL ONE (16:48)
[2023-02-24] MEDS ORDERED: MORPHINE 4 MG/ML SYR ONE ×2 (16:48→18:28)
[2023-02-24] MEDS ORDERED: NA CHLORIDE 0.9% 1,000 ML ONE (16:48)
[2023-02-24 17:22] LABS: Hematocrit 43.3 % (36.0-45.0); MCV 92.3 fL (80-100); Platelets 245 thou/uL (152-406); RBC Red Blood Cell Count 4.69 M/uL (3.86-4.86)
[2023-02-24 17:25] LABS: Protime INR 1.18; Specific Gravity 1.005 (1.005-1.030); Urine Bilirubin NEGATIVE (Negative); Urine Blood Negative (Negative); Urine Clarity Clear (Clear); Urine Color Colorless (Yellow); Urine Glucose NEGATIVE (Negative); Urine Protein NEGATIVE (Negative); Urine Urobilinogen Normal (Normal)
[2023-02-24 17:38] LABS: Albumin 4.5 g/dL (3.4-5.0); Bilirubin Total 0.4 mg/dL (0.2-1.0); Potassium 3.7 mEq/L (3.5-5.1); Protein, Total 8.2 g/dL (6.4-8.2)
[2023-02-24] MEDS ORDERED: KETOROLAC 30 MG/ML INJ ONE (17:42)
--- NOTE | 2023-02-24 18:09 | RAD REPORT ---
EXAM DESCRIPTION: CT - Stone Protocol - 02/24/2023 5:14 pm CLINICAL HISTORY: FLANK PAIN COMPARISON: Abdomen Pelvis W Contrast dated 02/21/2023; Stone Protocol dated 12/31/2022; Abdomen P gary Wo Contrast dated 02/24/2022 TECHNIQUE: CT imaging of the abdomen and pelvis was performed without IV contrast. Multiplanar refor mats were generated and reviewed. All CT scans are performed using dose optimization technique as appropriate and may include automated exposure control or mA/KV adjustment according to patient size. FINDINGS: No suspicious findings in the lung bases. The liver, spleen and pancreas show no suspicious findings. Gallbladder and biliary tree are also wit hout suspicious finding. Persistent moderate right hydroureteronephrosis. 5 millimeter right ureterovesical junction calculus is stable in position. No suspicious renal mass. No significant adrenal finding. Isodense masses and pyelonephritis cannot be excluded in the absence of IV contrast. No dilated bowel loops or bowel wall thickening. No free air, free fluid or inflammatory stranding. N o hernia, mass or bulky lymphadenopathy. Cervical diaphragm has been placed. The urinary bladder is s uboptimally distended, without significant finding. No suspicious bony findings. Spinal stimulator battery pack and electrodes unchanged in position. IMPRESSION: Persistent moderate right hydroureteronephrosis with stable position of 5 millimeter rig ht ureterovesical junction calculus. No other acute intra- abdominal process.
[2023-02-24] MEDS ORDERED: MAGNESIUM SULFATE 1 gm IVPB 1 GM/100 ML BAG IV ONE (18:45)
--- NOTE | 2023-02-24 19:46 | ER ---
Nurse's Notes [facility] Name: Hawa Alaniz Age: 32 yrs Sex: Female : 1990 Arrival Date: 02/24/2023 Time: 15:45 Bed 19 Private MD: Diagnosis: Calculus of ureter-right;Intractable Pain Presentation: 02/24 16:00 Chief complaint: Seen here on 02/21, transferred to [place] for kidney stone, reports right hb flank pain has become severe. Coronavirus screen: At this time, the client does not indicate any symptoms associated with coronavirus-19. Ebola Screen: No symptoms or risks identified at this time. Initial Sepsis Screen: Does the patient meet any 2 criteria? No. Patient's initial sepsis screen is negative. Does the patient have a suspected source of infection? No. Patient's initial sepsis screen is negative. Risk Assessment: Do you want to hurt yourself or someone else? Patient reports no desire to harm self or others. Onset of symptoms was February 24, 2023. 16:00 Method Of Arrival: Wheelchair hb 16:00 Acuity: KADE 2 hb PLASTIC MANAGER: 22:45 Not nw1 Historical: - Allergies: 16:02 HYDROCODONE; hb - PMHx: 16:02 complex regional pain syndrome; IUD in place; hb - PSHx: 16:02 hemorroidectomy; hernia repair; Spinal Cord Stimulator; hb - Immunization history:: Adult Immunizations up to date. - Social history:: Smoking status: Patient denies any tobacco usage or history of. Screenin:02 [facility] ED Fall Risk Assessment (Adult) History of falling in the last 3 months, mb9 including since admission No falls in past 3 months (0 pts) Confusion or Disorientation No (0 pts) Intoxicated or Sedated No (0 pts) Impaired Gait No (0 pts) Mobility Assist Device Used No (0 pt) Altered Elimination No (0 pt) Score/Fall Risk Level 0 - 2 = Low Risk Oriented to surroundings, Maintained a safe environment, Educated pt \T\ family on fall prevention, incl call for assistance when getting out of bed. Abuse screen: Denies threats or abuse. Nutritional screening: No deficits noted. Tuberculosis screening: No symptoms or risk factors identified. Assessment: 17:34 Reassessment: Patient appears in no apparent distress at this time. Patient and/or jl7 family updated on plan of care and expected duration. Pain level reassessed. Patient is alert, oriented x 3, equal unlabored respirations, skin warm/dry/pink. pain rated 6/10 at this time. 18:01 Reassessment:. General: Appears uncomfortable, Behavior is anxious. Pain: Complains of mb9 pain in back Pain radiates to right flank Pain currently is 10 out of 10 on a pain scale. Quality of pain is described as throbbing. Neuro: Velazquez Agitation-Sedation Scale (RASS): 0 - Alert and Calm Level of Consciousness is awake, alert, obeys commands, Oriented to person, place, time, situation, Appropriate for age. Cardiovascular: Patient's skin is warm and dry. Respiratory: Airway is patent Respiratory effort is even, unlabored, Respiratory pattern is regular, symmetrical. GI: Abdomen is flat, non-distended, Bowel sounds present X 4 quads. Abd is soft and non tender X 4 quads. : No signs and/or symptoms were reported regarding the genitourinary system. EENT: No signs and/or symptoms were reported regarding the EENT system. Derm: Skin is pink, warm \T\ dry. Musculoskeletal: Range of motion: intact in all extremities. 19:08 Reassessment: Patient and/or family updated on plan of care and expected duration. Pain nw1 level reassessed. Pt noted in bed with notable discomfort. Pt states pain 8/10 and increasing. VSS. Will notify MD. Vital Signs: 16:00 BP 146 / 119; Pulse 153; Resp 18; Temp 98.9; Pulse Ox 100% on R/A; Weight 51.71 kg; hb Height 4 ft. 11 in. ; Pain 10/10; 17:33 BP 116 / 64; Pulse 76; Resp 17; Temp 97; Pulse Ox 99% ; Pain 6/10; jl7 18:38 BP 113 / 68; Pulse 67; Resp 15; Pulse Ox 97% on R/A; mb9 19:00 BP 110 / 75; Pulse 79; Resp 20; Pulse Ox 99% on R/A; nw1 20:24 BP 107 / 74; Pulse 77; Resp 19; Pulse Ox 99% on R/A; nw1 22:37 BP 94 / 54; Pulse 74; Pulse Ox 98% on R/A; nw1 16:00 Body Mass Index 23.02 (51.71 kg, 149.86 cm) hb 16:00 Pain Scale: Adult hb 17:33 Pain Scale: Adult jl7 20:24 PA notified. nw1 ED Course: 15:48 Patient arrived in ED. im 15:58 Lawrence Russell PA is PHCP. cp 15:58 Lawrence Christianson MD is Attending Physician. cp 16:01 Triage completed. hb 16:02 Arm band placed on. hb 16:06 Martita Casas, RN is Primary Nurse. jl7 16:15 Inserted saline lock: 20 gauge in left antecubital area, using aseptic technique. Blood jl7 collected. 16:15 Initial lab(s) drawn, by me, sent to lab. jl7 17:00 First set of blood cultures drawn by me. jl7 17:08 Second set of blood cultures drawn by me. jl7 17:15 CT Stone Protocol In Process Unspecified. EDMS 18:02 Placed in gown. Bed in low position. Call light in reach. Side rails up X 1. Client mb9 placed on continuous cardiac and pulse oximetry monitoring. NIBP monitoring applied. 18:02 No provider procedures requiring assistance completed. mb9 18:12 Primary Nurse role handed off by Martita Casas RN mb9 18:12 Margarette Mohr, JULIO is Primary Nurse. mb9 19:45 Andrei Arellano MD is Hospitalizing Provider. cp 22:42 Provided Education on: POC. nw1 22:42 Patient admitted, IV remains in place. nw1 Administered Medications: 17:00 Drug: NS 0.9% IV (30 ml/kg) 30 ml/kg IV at bolus once; Sepsis Protocol Route: IV; Rate: jl7 bolus; Site: left antecubital; 17:00 Drug: morphine IVP or IV 4 mg IVP once over 4 mins Route: IVP; Infused Over: 4 mins; jl7 Site: left antecubital; 18:20 Follow up: Response: No adverse reaction mb9 17:00 Drug: Ondansetron IVP 4 mg IVP once; over 2 minutes Route: IVP; Site: left antecubital; jl7 18:20 Follow up: Response: No adverse reaction mb9 17:32 Drug: Ketorolac IVP 15 mg IVP once Route: IVP; Site: left antecubital; jl7 18:20 Follow up: Response: No adverse reaction mb9 18:19 Drug: morphine IVP or IV 4 mg IVP once over 4 mins Route: IVP; Infused Over: 4 mins; mb9 Site: left antecubital; 18:33 Follow up: Response: No adverse reaction mb9 18:33 Drug: Magnesium Sulfate IVPB 1 grams IVPB once over 20 mins Route: IVPB; Infused Over: mb9 20 mins; Site: left antecubital; 19:51 Drug: Diazepam IVP 2 mg IVP once Route: IVP; Site: left antecubital; nw1 20:45 Drug: Diazepam PO 10 mg PO once Route: PO; nw1 Medication: 18:38 VIS not applicable for this client. mb9 Outcome: 19:45 Decision to Hospitalize by Provider. cp 22:42 Admitted to Med/surg accompanied by nurse, via wheelchair, room 204, Report called to nw1 JULIO MAHONEY 22:42 Condition: stable 22:42 Instructed on the need for admit, 22:45 Patient left the ED. nw1 Signatures: Dispatcher [employer] EDMS Lawrence Russell PA PA cp Dilia Meadows RN Martita Spangler RN RN jl7 Margarette Mohr RN RN mb9 Alize Acosta Nicole, RN RN nw1
--- NOTE | 2023-02-24 19:46 | EDPHYS ---
Physician Documentation [facility] Name: Hawa Alaniz Age: 32 yrs Sex: Female : 1990 Arrival Date: 02/24/2023 Time: 15:45 Bed 19 Private MD: ED Physician Lawrence Christianson HPI: 02/24 16:25 This 32 yrs old Female presents to ER via Wheelchair with complaints of Abdominal cp Cramping, Abdominal Pain, Back Pain. 16:25 The patient complains of pain in the right flank. The pain radiates to the back and cp abdomen. 16:25 Associated signs and symptoms: Pertinent positives: nausea, Pertinent negatives: fever, cp hematuria, active vomiting. Severity of pain: in the emergency department the pain is unchanged despite home interventions. The patient has been recently seen at the [facility] Emergency Department, 02/21/2023 and diagnosed with 5 mm right side kidney stone. Transferred to [place] for care. No procedures done, discharged with pain meds. 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 - Social history:: Smoking status: Patient denies any tobacco usage or history of. ROS: 16:30 Constitutional: Positive for poor PO intake, Negative for body aches, chills, fever, cp 16:30 Back: Positive for flank pain, on the right, cp 16:30 Respiratory: Negative for cough, shortness of breath, wheezing, cp 16:30 Abdomen/GI: Positive for abdominal pain, abdominal cramps, 16:30 Eyes: Negative for injury, pain, redness, and discharge, cp 16:30 ENT: Negative for drainage from ear(s), ear pain, sore throat, difficulty swallowing, difficulty handling secretions, 16:30 Cardiovascular: Negative for chest pain, edema, palpitations, 16:30 : Negative for hematuria, difficulty urinating, 16:30 Neuro: Negative for altered mental status, dizziness, headache, numbness, weakness, 16:30 All other systems are negative, Exam: 16:33 Constitutional: The patient appears in no acute distress, alert, awake, cp non-diaphoretic, non-toxic, well developed, well nourished, in obvious pain, uncomfortable, 16:33 Head/Face: Normocephalic, atraumatic. cp 16:33 Eyes: Periorbital structures: appear normal, Conjunctiva: normal, no exudate, no injection, Sclera: no appreciated abnormality, Lids and lashes: appear normal, bilaterally, 16:33 ENT: External ear(s): are unremarkable, Nose: is normal, Mouth: Lips: moist, Oral mucosa: pink and intact, moist, Posterior pharynx: is normal, airway is patent, no erythema, no exudate, 16:33 Neck: ROM/movement: is normal, is supple, without pain, no range of motions limitations, Lymph nodes: no appreciated lymphadenopathy, 16:33 Chest/axilla: Inspection: normal, 16:33 Cardiovascular: Rate: tachycardic, Rhythm: regular, 16:33 Respiratory: the patient does not display signs of respiratory distress, Respirations: normal, no use of accessory muscles, no retractions, labored breathing, is not present, Breath sounds: are clear throughout, no decreased breath sounds, no stridor, no wheezing, 16:33 Abdomen/GI: Inspection: abdomen appears normal, Bowel sounds: active, all quadrants, Palpation: soft, in all quadrants, severe abdominal tenderness, in the posterior aspect of right lateral abdomen and anterior aspect of right lateral abdomen, 16:33 Neuro: Orientation: to person, place \T\ time. Mentation: is normal, Motor: moves all fours, strength is normal, Sensation: is normal, 18:28 ECG was reviewed by the Attending Physician. cp Vital Signs: 16:00 BP 146 / 119; Pulse 153; Resp 18; Temp 98.9; Pulse Ox 100% on R/A; Weight 51.71 kg; hb Height 4 ft. 11 in. ; Pain 10/10; 17:33 BP 116 / 64; Pulse 76; Resp 17; Temp 97; Pulse Ox 99% ; Pain 6/10; jl7 18:38 BP 113 / 68; Pulse 67; Resp 15; Pulse Ox 97% on R/A; mb9 19:00 BP 110 / 75; Pulse 79; Resp 20; Pulse Ox 99% on R/A; nw1 20:24 BP 107 / 74; Pulse 77; Resp 19; Pulse Ox 99% on R/A; nw1 22:37 BP 94 / 54; Pulse 74; Pulse Ox 98% on R/A; nw1 16:00 Body Mass Index 23.02 (51.71 kg, 149.86 cm) hb 16:00 Pain Scale: Adult hb 17:33 Pain Scale: Adult jl7 20:24 PA notified. MDM: 16:08 Patient medically screened. myron 17:00 Differential diagnosis: nephrolithiasis, pyelonephritis, UTI, sepsis. cp 18:15 Data reviewed: vital signs, nurses notes, lab test result(s), radiologic studies, CT cp scan. 18:35 Management of patient was discussed with the following: French Folding Machine Operator: DR Tompkins who will cp consult if patient admitted for intractable pain. 02/24 16:23 Order name: Blood Culture Adult (2) cp 02/24 16:23 Order name: CBC with Diff; Complete Time: 17:39 cp 02/24 17:40 Interpretation: Reviewed. 02/24 16:23 Order name: CMP; Complete Time: 17:39 cp 02/24 18:19 Interpretation: Normal except: CL 109; GLUC 109; AST 10; ALK 43; GLOB 3.7; BILIT 0.4. cp 02/24 16:23 Order name: Lactate w/ 2H reflex if indic.; Complete Time: 17:39 cp 02/24 17:40 Interpretation: Reviewed. 02/24 16:23 Order name: Protime (+inr); Complete Time: 17:39 cp 02/24 17:40 Interpretation: Reviewed. 02/24 16:23 Order name: Ptt, Activated; Complete Time: 17:39 cp 02/24 16:23 Order name: Urinalysis w/ reflexes; Complete Time: 17:39 cp 02/24 17:40 Interpretation: Reviewed. 02/24 16:23 Order name: PREGU; Complete Time: 17:39 cp 02/24 17:40 Interpretation: Reviewed. cp 02/24 20:16 Order name: Basic Metabolic Panel EDMS 02/24 20:16 Order name: Basic Metabolic Panel EDMS 02/24 20:16 Order name: CBC with Automated Diff EDMS 02/24 20:16 Order name: CBC with Automated Diff EDMS 02/24 16:23 Order name: CT Stone Protocol; Complete Time: 18:11 cp 02/24 16:23 Order name: EKG; Complete Time: 16:23 cp 02/24 16:23 Order name: Accucheck; Complete Time: 17:13 cp 02/24 16:23 Order name: Cardiac monitoring; Complete Time: 17:14 cp 02/24 16:23 Order name: EKG - Nurse/Tech; Complete Time: 18:20 cp 02/24 16:23 Order name: IV Saline Lock - Large Bore; Complete Time: 16:32 cp 02/24 16:23 Order name: Labs collected and sent; Complete Time: 17:19 cp 02/24 16:23 Order name: O2 Per Protocol; Complete Time: 16:32 cp 02/24 16:23 Order name: O2 Sat Monitoring; Complete Time: 16:32 cp 02/24 16:23 Order name: Vital Signs; Complete Time: 16:32 cp 02/24 18:25 Order name: NPO; Complete Time: 18:29 cp EC:28 Rate is 80 beats/min. Rhythm is regular. HI interval is normal. QRS interval is normal. cp QT interval is normal. T waves are Inverted in lead aVR. Interpreted by me. Reviewed by me. Administered Medications: 17:00 Drug: NS 0.9% IV (30 ml/kg) 30 ml/kg IV at bolus once; Sepsis Protocol Route: IV; Rate: jl7 bolus; Site: left antecubital; 17:00 Drug: morphine IVP or IV 4 mg IVP once over 4 mins Route: IVP; Infused Over: 4 mins; jl7 Site: left antecubital; 18:20 Follow up: Response: No adverse reaction mb9 17:00 Drug: Ondansetron IVP 4 mg IVP once; over 2 minutes Route: IVP; Site: left antecubital; jl7 18:20 Follow up: Response: No adverse reaction mb9 17:32 Drug: Ketorolac IVP 15 mg IVP once Route: IVP; Site: left antecubital; jl7 18:20 Follow up: Response: No adverse reaction mb9 18:19 Drug: morphine IVP or IV 4 mg IVP once over 4 mins Route: IVP; Infused Over: 4 mins; mb9 Site: left antecubital; 18:33 Follow up: Response: No adverse reaction mb9 18:33 Drug: Magnesium Sulfate IVPB 1 grams IVPB once over 20 mins Route: IVPB; Infused Over: mb9 20 mins; Site: left antecubital; 19:51 Drug: Diazepam IVP 2 mg IVP once Route: IVP; Site: left antecubital; nw1 20:45 Drug: Diazepam PO 10 mg PO once Route: PO; nw1 Disposition Summary: 02/24/23 19:45 Hospitalization Ordered Notes: Hospitalization Status: Observation cp Provider: Andrei Arellano cp Location: Telemetry/MedSurg (observation) cp Condition: Stable cp Problem: an ongoing problem cp Symptoms: have improved cp Bed/Room Type: Standard cp Room Assignment: 204(02/24/23 21:53) eb1 Diagnosis - Calculus of ureter - right cp - Intractable Pain cp Forms: - Medication Reconciliation Form cp - SBAR form cp - Leadership Thank You Letter cp Signatures: Dispatcher [employer] EDMS Lawrence Christianson MD MD cha Page, Corey, PA PA cp Dilia Meadows RN RN Martita Casas RN RN jl7 Mariluz Ni RN RN eb1 Margarette Mohr RN RN mb9 Tianna Mccord RN RN nw1 Corrections: (The following items were deleted from the chart) 18:19 17:40 Normal except: CL 109; GLUC 109; AST 10; ALK 43; GLOB 3.7. cp cp 21:53 19:45 cp eb1 02/25 17:37 17:35 Associated signs and symptoms: Pertinent positives: nausea, Pertinent negatives: cp fever, hematuria, active vomiting, cp 17:37 17:35 Severity of pain: in the emergency department the pain is unchanged despite home cp interventions, cp 17:37 17:35 The patient has been recently seen at the [facility] cp Emergency Department, 02/21/2023 and diagnosed with 5 mm right side kidney stone. Transferred to [place] for care. No procedures done, discharged with pain meds, cp
[2023-02-24] MEDS ORDERED: DIAZEPAM 10 MG/2 ML INJ SYRINGE ONE (19:52)
[2023-02-24] MEDS ORDERED: ACETAMINOPHEN 325 MG TABLET PO PRN (20:12)
--- NOTE | 2023-02-24 20:16 | P.HP ---
Certification for Inpatient Patient admitted to: Observation With expected LOS: <2 Midnights Patient will require the following post-hospital care: None Practitioner: I am a practitioner with admitting privileges, knowledge of patient current condition, hospital course, and medical plan of care. Services: Services provided to patient in accordance with Admission requirements found in Title 42 Section 412.3 of the Code of Federal Regulations Patient History Date of Service: 02/25/23 Reason for admission: Abdominal pain, history of kidney stone. History of Present Illness: 32-year-old female patient with past medical history significant for previously diagnosed kidney stone for which she was sent to the [place] system after initial evaluation a couple of days ago. She had complained of abdominal pain, nausea and vomiting and was found to have kidney stone. She was transferred to the [place] system for logistic reasons and she did not get significant care for kidney stones while admitted there. She presents again today with abdominal pain and was also found to have a 5 mm obstructing kidney stone with hydronephrosis. She was put on IV fluid and pain control medication was asked to be evaluated by urology for management of a kidney stone and hydronephrosis. She denies burning on micturition, fever, chills. Allergies hydrocodone Allergy (Verified 02/24/23 23:01) Itching Home Medications: NK [No Home Meds] 02/24/23 Review of Systems General: Unremarkable Eyes: Unremarkable ENT: Unremarkable Respiratory: Unremarkable Cardiovascular: Unremarkable Gastrointestinal: Nausea, Vomiting, Abdominal Pain Genitourinary: As per HPI Musculoskeletal: Unremarkable Integumentary: Unremarkable Neurological: Unremarkable Physical Examination - Physical Exam General: Alert, Oriented x3 HEENT: Atraumatic, Normocephalic Neck: Supple Respiratory: Clear to auscultation bilaterally Cardiovascular: Regular rate/rhythm, Normal S1 S2 Gastrointestinal: Soft and benign Neurological: Normal speech - Studies Laboratory Data (last 24 hrs) 02/24/23 02/24/23 02/24/23 17:05 17:05 17:05 WBC 7.20 Hgb 14.4 Hct 43.3 Plt Count 245 PT 13.0 H INR 1.18 APTT 29.5 Sodium 141 Potassium 3.7 BUN 13 Creatinine 0.84 Glucose 109 H Total Bilirubin 0.4 AST 10 L ALT 21 Alkaline Phosphatase 43 L Assessment and Plan - Plan Kidney stones: Patient has significant stone which is about 5 mm with hydronephrosis on the right. Urology has been consulted for management. Continue pain control with as needed morphine and Tylenol. Continue IV hydration. Continue tamsulosin therapy. She will be kept n.p.o. for surgical intervention in a.m. Prophylaxis: Lovenox for DVT prophylaxis CODE STATUS: Full code Disposition: We will treat her hydronephrosis and kidney stone and discharge her once plan of care is finalized. Discharge Plan: Home - Advance Directives Does patient have a Living Will: No Does patient have a Durable POA for Healthcare: No
[2023-02-24] MEDS ORDERED: DIAZEPAM 5 MG TABLET ONE (20:41)
[2023-02-24] MEDS: NA CHLORIDE 0.9% 1,000 ML IV SCH (23:17)
[2023-02-24 23:39] VITALS: BMI 25.2
[2023-02-25] MEDS: ONDANSETRON 4 MG/2 ML VIAL IV PRN ×3 (04:26→18:06)
[2023-02-25] MEDS: HYDROMORPHONE HCL 0.5 MG/0.5 ML INJ IV PRN ×5 (04:26→18:54)
[2023-02-25] MEDS ORDERED: INFLUENZA VACCINE (for 6+ mo) 0.5 ML DOSE IMVAC ONE (08:00)
[2023-02-25] MEDS: NA CHLORIDE 0.9% 1,000 ML IV SCH ×2 (08:31→17:00)
[2023-02-25 08:35] LABS: Hematocrit 36.6 % (36.0-45.0); Lymphocytes % 47.8 % (15.3-44.8); MCV 93.4 fL (80-100); MPV 8.6 fL (7.6-11.3); Platelets 187 thou/uL (152-406); RBC Red Blood Cell Count 3.91 M/uL (3.86-4.86)
[2023-02-25 08:47] LABS: Potassium 4.4 mEq/L (3.5-5.1)
[2023-02-25] MEDS: ENOXAPARIN 40 MG/0.4 ML SQ SCH (09:00)
[2023-02-25] MEDS: TAMSULOSIN 0.4 MG SR CAP PO SCH ×2 (09:00→09:07)
[2023-02-25] MEDS ORDERED: KETOROLAC 30 MG/ML INJ IV PRN (09:06)
--- NOTE | 2023-02-25 14:31 | P.PN ---
Subjective Date of Service: 02/25/23 Chief Complaint: Abdominal pain, history of kidney stone. Patient is complaining of intractable right flank pain radiating to the groin. Pain described as colicky/spasms. No recorded fever. She reports nausea but no vomiting. Physical Examination - Vital Signs Temperature: 97.6 F Blood Pressure: 94/50 Pulse: 65 Respirations: 18 Pulse Ox (%): 97 - Physical Exam General: Alert, In no apparent distress, Oriented x3 HEENT: Mucous membr. moist/pink Neck: Supple, JVD not distended Respiratory: Clear to auscultation bilaterally, Normal air movement Cardiovascular: No edema, Regular rate/rhythm, Normal S1 S2 Gastrointestinal: Normal bowel sounds, Soft and benign, Tenderness (Right flank) Musculoskeletal: No swelling Integumentary: No rashes, No cyanosis Neurological: Normal speech, Normal strength at 5/5 x4 extr - Studies Laboratory Data (last 24 hrs) 02/24/23 02/24/23 02/24/23 17:05 17:05 17:05 WBC 7.20 Hgb 14.4 Hct 43.3 Plt Count 245 PT 13.0 H INR 1.18 APTT 29.5 Sodium 141 Potassium 3.7 BUN 13 Creatinine 0.84 Glucose 109 H Total Bilirubin 0.4 AST 10 L ALT 21 Alkaline Phosphatase 43 L Assessment And Plan - Current Problems (Diagnosis) (1) Intractable abdominal pain Current Visit: Yes Status: Acute (2) Nephrolithiasis Current Visit: Yes Status: Acute (3) Hydronephrosis Current Visit: Yes Status: Acute (4) Chronic pain syndrome Current Visit: Yes Status: Acute - Plan Nephrolithiasis/hydronephrosis/intractable abdominal pain Case discussed with urology Dr. Tompkins who will evaluate the patient for possible urologic intervention. Continue supportive measures with analgesics as needed for pain Antiemetics as needed Currently n.p.o. Empiric broad-spectrum antibiotics. Stable renal function. Monitor. Chronic pain syndrome Patient has a spinal cord stimulator.
[2023-02-25] MEDS: CEFTRIAXONE 1,000 MG in NA CHLORIDE 0.9% 50 ML IVPB SCH (17:50)
--- NOTE | 2023-02-25 18:04 | EKG ---
Test Date: 2023-02-24 Test Time: 18:21:24 Import Dispatcher: ORQUIDEA MEASUREMENT RESULTS: Intervals: Rate: 80 [place]: 146 QRSD: 90 QT: 374 QTc: 431 [place]: P: 69 [place]: 146 QRS: 76 T: 59 INTERPRETIVE STATEMENTS: Normal sinus rhythm with sinus arrhythmia Normal ECG No previous ECG available for comparison Electronically Signed On 02-25-23 18:03:07 CDT by Stephan Portillo
[2023-02-25] MEDS: Ringers Lactate 1,000 ML IV ONE ×2 (20:56→21:07)
[2023-02-25] MEDS ORDERED: ONDANSETRON 4 MG/2 ML VIAL ONE (21:27)
[2023-02-25] MEDS ORDERED: FENTANYL CITR 100 MCG/2 ML ONE (21:27)
[2023-02-25] MEDS ORDERED: propofoL 200 MG/20 ML VIAL IV ONE (21:27)
[2023-02-25] MEDS ORDERED: MIDAZOLAM HCL 2 MG/2 ML INJ ONE (21:27)
[2023-02-25] MEDS ORDERED: LIDOCAINE 1% MPF 5 ML VIAL ONE (21:27)
--- NOTE | 2023-02-25 21:35 | P.CNS ---
Date of Consult: 02/25/23 Reason for Consult: Intractable pain Requesting Physician: ned son Chief Complaint: Abdominal pain, history of kidney stone. History of Present Illness: 32-year-old woman with CRPS2 (chronic regional pain syndrome type II) with pain management spinal cord stimulator and leads in her right hip with PTSD with anxiety presents with an approximately 2-week history of persistent and worsening right flank pain that extended into the right mid lower quadrant and into the pelvis. She describes having had some pain associated with gross hematuria about 2 months ago, but that pain resolved, and she never had it evaluated. She was seen at the [facility] after initial presentation here, and she was discharged. The pain progressively worsened until she could no longer tolerate it which prompted the need for her current admission and surgical management. Past medical history: As above Past surgical history: Umbilical hernia repair with mesh No known drug allergies but intolerance to hydrocodone+ acetaminophen combination = itching Social history: Attempted smoking but inconsistent Family history: She denies history of urologic malignancy but she does have family members with kidney stones Examination: Patient well-appearing and in no acute distress Alert, awake, oriented x3 No dyspnea or sign of respiratory distress Abdomen is soft, nontender Lying in a stretcher Laboratory analyses: 02/25/2023 WBC 4.2, hemoglobin 12.4, platelets 187, creatinine 0.72, UA negative EKG normal sinus rhythm with sinus arrhythmia 02/24/2023 CT stone protocol: Findings: Right hydroureteronephrosis secondary to a 5 mm UVJ calculus. No suspicious renal masses or significant adrenal findings. -I reviewed the images of the CT scan in detail, and while there were no additional renal calculi, there was some papillary renal calcification in the mid lower pole laterally within the cortex of the right kidney Assessment and recommendation: 32-year-old woman with CRPS2 (chronic regional pain syndrome type II) with pain management spinal cord stimulator and leads in her right hip with PTSD with anxiety with intractable right flank and lower quadrant pain secondary to an obstructing 5 mm right UVJ calculus. -I counseled the patient on the option for surgical management to include placement of a right ureteral stent versus percutaneous nephrostomy tube. In fact, I explained the about 5% chance of impacted calculus necessitating nephrostomy tube placement. I further explained that she had passed the stone already 90 to 95% [address] the way out of the ureter, and attempted stone passage could take even up to a month, though the pain she experienced about 2 months ago may have been earlier pain associated with the same stone passage event. -I then counseled the patient about the risk of stent discomfort and explained the potential for significant urinary frequency/irritative LUTS, gross hematuria, and stent pain, but explained that the stent should relieve the colicky/spasmodic discomfort that she is experiencing. -I explained the procedure to be cystoscopy with right retrograde pyelography and right ureteral stent placement, and I counseled her on the risks of the procedure to include infection, bleeding, urethral stricture, injury to the ureter, failure of the desired approach and need for nephrostomy tube placement. -I explained she would require subsequent definitive management of the stone as there was less than a 1% chance of it spontaneously passing alongside the stent. As such, I explained we would endeavor to have her return to the operating room for definitive management with right ureteroscopy and laser lithotripsy within a month. -Consent was obtained and signed by the patient. Allergies hydrocodone Allergy (Verified 02/24/23 23:01) Itching Home medications list reviewed: Yes Home Medications: NK [No Home Meds] 02/24/23 - Past Medical/Surgical History Diabetic: No - Social History Smoking Status: Former smoker, Never smoker Alcohol use: No CD- Drugs: No Caffeine use: Yes Place of Residence: Home Physical Examination Temp Pulse Resp BP Pulse Ox 97.7 F 82 18 104/57 L 99 02/25/23 20:00 02/25/23 20:00 02/25/23 20:00 02/25/23 20:00 02/25/23 20:00 - Problems (1) Hydronephrosis, right Current Visit: Yes Status: Acute (2) Ureterolithiasis Current Visit: Yes Status: Acute (3) Right flank pain Current Visit: Yes Status: Acute (4) Chronic pain syndrome Current Visit: Yes Status: Acute (5) Intractable abdominal pain Current Visit: Yes Status: Acute Conclusions/Impression: See HPI assessment and plan Critical Care: No Time Spent Managing Pts care (In Minutes): 25
[2023-02-25 22:08] VITALS: O2SAT 100
[2023-02-25] MEDS ORDERED: PHENAZOPYRIDINE 100MG TAB PO ONE (22:11)
--- NOTE | 2023-02-25 22:19 | P.OP ---
Date of Service: 02/25/23 Preoperative diagnoses: Right flank pain intractable Right hydronephrosis Right distal ureterolithiasis Postoperative diagnoses: Same Principal procedures: Cystoscopy Right retrograde pyelography Complex right 6 Norwegian by 26 cm double-J ureteral stent placement Findings: Significant hydronephrosis with marked tortuosity of the ureter requiring slight additional effort to ensure wire entered the renal pelvis and proper stent placement. Indications for procedure: 32-year-old woman with CRPS2 (chronic regional pain syndrome type II) with pain management spinal cord stimulator and leads in her right hip with PTSD with anxiety with intractable right flank and lower quadrant pain secondary to an obstructing 5 mm right UVJ calculus. Procedure note: The patient was consented in the preoperative holding area before being transferred to the operative suite where general anesthesia was induced. She was being treated with ceftriaxone IV antimicrobial therapy on the floor, and pneumoboots were provided for DVT prophylaxis. She was placed in the lithotomy position, padded and secured to the table appropriately, and her genitalia was prepped with Hibiclens before being draped in standard fashion. The case was begun using a 22 Norwegian rigid cystoscope to traverse the urethra and into the bladder with ease. The bladder was decompressed of fluid and urine and then surveyed. The right ureteral orifice was orthotopic in location but slightly inflamed/heaped up in appearance, likely due to the presence of the stone at the extramural ureter which was subsequently confirmed as I utilized the tip of a sensor wire to intubate the ureteral orifice and followed it with the 5 Norwegian ureteral access catheter which reached a point of obstruction in about 2 to 3 cm into the orifice. I then remove the sensor wire and switched it for contrast mixture and performed a retrograde pyelogram. Right retrograde pyelography: Using a 70: 30 mixture of Omnipaque and saline, contrast was injected via the lumen of the 5 Norwegian ureteral access catheter and did propagate into the distal ureter, beyond the point of obvious obstruction with a radiolucent calculus before entering the mid distal ureter where significant ureteral nephrosis was noted. The contrast would not emanate beyond the mid ureter despite a full 10 cc bolus; so I then utilized an additional 10 cc bolus of contrast injected to try to get the contrast to delineate the renal pelvis and collecting system, but even after a second bolus of 10 cc of contrast mixture, the contrast would not enter the renal pelvis indicating tortuosity of the proximal ureter. As a result, a third bolus of contrast was given and I was finally able to get contrast to enter into the renal pelvis that could be faintly seen with significant hydronephrosis. I then passed the sensor wire via the 5 Norwegian ureteral access catheter and into the mid proximal ureter where it was hung up a bit trying to navigate beyond the tortuosity into the collecting system. As a result, I had to advance the 5 Norwegian ureteral access catheter over the wire into the mid proximal ureter at the level of the tortuosity and then try to further navigate the wire into the collecting system, advancing the 5 Norwegian ureteral access catheter over the wire [id number] until eventually I was able to straighten the ureter out from its tortuosity and secured the wire nicely placed within the upper pole calyx of the right kidney. I then remove the 5 Norwegian ureteral access catheter and passed a 6 Norwegian by 26 cm double-J ureteral stent over the wire successfully coiling it within the renal pelvis of the right kidney. An additional coil was observed cystoscopically in the bladder. I then decompressed her bladder of fluid and urine, and the patient was taken out of the lithotomy position after I remove the cystoscope. She was then awakened from general anesthesia, transferred to a stretcher, and then transferred to the recovery room in good condition. Complications: None Discharge disposition: She will require follow-up to discuss definitive surgical management via ureteroscopy with laser lithotripsy and stent exchange, the surgical procedure which ideally would occur within the next 30 days.
--- NOTE | 2023-02-25 22:55 | RAD REPORT ---
EXAM DESCRIPTION: RAD - Cystography - 02/25/2023 10:07 pm CLINICAL HISTORY: Stent COMPARISON: None available. FINDINGS: Twelve Images were sent to PACS, documenting imaging guidance during right ureteral stent placement. No radiologist was available for the procedure, nor will any image interpretation he provi ded. Please refer to the procedural report for additional details. Fluoroscopy time: 24 seconds. IMPRESSION: Documentation of fluoroscopy utilization as above.
[2023-02-26] MEDS: NA CHLORIDE 0.9% 1,000 ML IV SCH ×2 (00:44→00:45)
[2023-02-26] MEDS: ONDANSETRON 4 MG/2 ML VIAL IV PRN (06:16)
[2023-02-26 07:34] VITALS: TEMP 97.9
[2023-02-26] MEDS: ENOXAPARIN 40 MG/0.4 ML SQ SCH (09:00)
--- NOTE | 2023-02-26 09:01 | P.DS ---
Admission Date: 02/24/23 Discharge Date: 02/26/23 Disposition: ROUTINE DISCHARGE Discharge Condition: FAIR Reason for Admission: Abdominal pain, history of kidney stone. - Problems (1) Intractable abdominal pain Status: Acute (2) Nephrolithiasis Status: Acute (3) Hydronephrosis Status: Acute (4) Chronic pain syndrome Status: Acute Brief History of Present Illness: 32-year-old female patient with past medical history significant for previously diagnosed kidney stone for which she was sent to the [facility] system after initial evaluation. She had complained of abdominal pain, nausea and vomiting and was found to have kidney stone. She was transferred to the [facility] system and she was told she may be able to pass the stone spontaneously and no intervention needed at that time. She was discharged with Flomax. She presented again with abdominal pain and right flank pain, and was also found to have a 5 mm obstructing kidney stone with hydronephrosis. She was put on IV fluid and pain control medication was asked to be evaluated by urology for management of a kidney stone and hydronephrosis. She denie burning on micturition, fever, chills. Patient was hospitalized for further management. Hospital Course: Patient was treated with supportive measures including IV hydromorphone as needed for pain, antiemetics, hydrated with IV fluid. Her pain was uncontrolled, urology was consulted, patient seen by Dr. Tompkins who performed cystoscopy and placed ureteral stent for hydroureteral nephrosis. Patient's flank pain resolved after the procedure. She has been afebrile, has been tolerating her diet and has been ambulatory. Initial UA did not suggest any UTI. Patient is discharged with empiric Omnicef. She is informed she needs to follow-up with Dr. Tompkins within 1 month. Vital Signs/Physical Exam: Temp Pulse Resp BP Pulse Ox 97.9 F 79 14 90/53 L 97 02/26/23 04:00 02/26/23 04:00 02/26/23 04:00 02/26/23 04:00 02/26/23 04:00 General: Alert, In no apparent distress, Oriented x3 HEENT: Mucous membr. moist/pink Neck: JVD not distended Respiratory: Clear to auscultation bilaterally, Normal air movement Cardiovascular: No edema, Regular rate/rhythm, Normal S1 S2 Gastrointestinal: Normal bowel sounds, Soft and benign, Non-distended Musculoskeletal: No swelling Integumentary: No rashes, No cyanosis Neurological: Normal strength at 5/5 x4 extr Laboratory Data at Discharge: WBC 4.20 thou/uL (4.3-10.9) L 02/25/23 08:06 Hgb 12.4 g/dL (12.0-15.0) D 02/25/23 08:06 Hct 36.6 % (36.0-45.0) 02/25/23 08:06 Plt Count 187 thou/uL (152-406) 02/25/23 08:06 PT 13.0 SECONDS (9.5-12.5) H 02/24/23 17:05 INR 1.18 02/24/23 17:05 APTT 29.5 SECONDS (24.3-36.9) 02/24/23 17:05 Sodium 143 mEq/L (136-145) 02/25/23 08:06 Potassium 4.4 mEq/L (3.5-5.1) D 02/25/23 08:06 BUN 14 mg/dL (7-18) 02/25/23 08:06 Creatinine 0.72 mg/dL (0.55-1.02) 02/25/23 08:06 Glucose 92 mg/dL (74-106) 02/25/23 08:06 Total Bilirubin 0.4 mg/dL (0.2-1.0) 02/24/23 17:05 AST 10 U/L (15-37) L 02/24/23 17:05 ALT 21 U/L (13-56) 02/24/23 17:05 Alkaline Phosphatase 43 U/L (45-117) L 02/24/23 17:05 Home Medications: Cefdinir [Cefdinir*] 300 mg PO BID #10 cap 02/26/23 Codeine/APAP [Tylenol W/Codeine #3 tab] 1 tab PO Q6HP PRN #20 tab 02/26/23 Ibuprofen 400 mg PO TID PRN #30 tab 02/26/23 Magnesium Citrate [Citroma*] 300 ml PO ONCE #1 btl 02/26/23 Tamsulosin [Flomax*] 0.4 mg PO DAILY cap 02/26/23 New Medications: Codeine/APAP [Tylenol W/Codeine #3 tab] 1 tab PO Q6HP PRN #20 tab PRN Reason: Pain Cefdinir [Cefdinir*] 300 mg PO BID #10 cap Magnesium Citrate [Citroma*] 300 ml PO ONCE #1 btl Ibuprofen 400 mg PO TID PRN #30 tab PRN Reason: Pain Physician Discharge Instructions: You have a new right sided ureteral stent in place. This is a foreign body, which must be removed within 6 months maximum. Please ensure to contact my office to arrange follow-up to discuss the next steps in surgical management for your obstructing right ureteral calculus. Notify me if you develop any fever (temperature greater than 100.4 Fahrenheit), intractable nausea or vomiting, increasing pain not controlled by pain medications, or other unusual signs or symptoms. It is common to see some blood in the urine following your procedure. It will be light pink/cranberry colored initially, and then it will become dark or tea colored, when the blood oxidized is in the urine, before it finally clears up. It is only a concern if you note bright red and thick/nontranslucent (not see-through) blood in the urine that appears like tomato juice. Notify me if you have any difficulty urinating, or if you feel the need to push or strain to urinate, as this may be a problem. If you do not require narcotic for pain management, you may take plain Tylenol (up to 1000 mg every 6 hours maximum) and alternate this every 4 hours with Motrin/ibuprofen (up to 800 mg every 8 hours maximum) for your pain. Please take note and keep the total 24-hour daily dose of Tylenol/acetaminophen less than 4000 mg / 4 g from all sources. You may purchase [id number] Azo (Pyridium) if you have burning with urination. Please note, it will turn your urine bright orange. Please contact my office at [phone] to arrange follow-up. All the best WBR Diet: Low sodium Activity: Ad salena Followup: MICHELLE MARTINEZ [Primary Care Provider] - 1-2 Weeks Nish Tompkins [ACTIVE - CAN ADMIT] - (within 1 month) Time spent managing pt's care (in minutes): 36
[2023-02-26 09:05] VITALS: BP 108/66
[2023-02-26] MEDS: TAMSULOSIN 0.4 MG SR CAP PO SCH (09:07)
[2023-02-26] MEDS: CEFTRIAXONE 1,000 MG in NA CHLORIDE 0.9% 50 ML IVPB SCH (09:15)
== END 2023-02-26 11:00 | disposition home or self-care (01) ==
LOC: ER 15:45 → ERHOLD 20:13 → 2ND 22:40
PROVIDERS: ADMIT Internal Medicine Nephrology; ATTEND Internal Medicine
PROC: 0T768DZ Dilation of Right Ureter with Intraluminal Device, Via Natural or Artificial Opening Endoscopic (ICD-10-PCS; principal; 2023-02-25 21:00)
DX: N13.2 Hydronephrosis with renal and ureteral calculous obstruction (principal); G89.4 Chronic pain syndrome; F43.10 Post-traumatic stress disorder, unspecified; F41.9 Anxiety disorder, unspecified; Z23 Encounter for immunization
CPT/HCPCS: 93005; 87040 ×2; 85025 ×2; 80048; 36415; 81025; 85610; 83605; 85730; 81003; 80053; 76377; 74176; 51600; 74430; 96375; 96374; 99285; 52332; J3475; J2704; J2001; J2250; J3360; J3010; J1170 ×4; J2405 ×6; G0378 ×6; J7120; J7030 ×4; J0696 ×2; J1650

== ENCOUNTER 2023-03-17 07:21 | Day surgery (SDC) | payer BC, OTHER ==
[2023-03-11 16:02] LABS: Absolute Lymphocytes (CBC) 2.3 K/uL (0.7-4.9); Hematocrit 40.2 % (36.0-45.0); Lymphocytes % 31.6 % (15.3-44.8); MCV 92.3 fL (80-100); MPV 8.4 fL (7.6-11.3); Platelets 247 thou/uL (152-406); Protime INR 1.15; RBC Red Blood Cell Count 4.36 M/uL (3.86-4.86)
[2023-03-11 16:16] LABS: Potassium 3.7 mEq/L (3.5-5.1)
[2023-03-17] MEDS ORDERED: Ringers Lactate 1,000 ML IV ONE (07:50)
[2023-03-17] MEDS ORDERED: Gentamicin Inj 120 MG in NA CHLORIDE 0.9% 100 ML IV ONE (08:00)
[2023-03-17] MEDS ORDERED: propofoL 200 MG/20 ML VIAL IV ONE (08:05)
[2023-03-17] MEDS ORDERED: MIDAZOLAM HCL 2 MG/2 ML INJ ONE (08:06)
[2023-03-17] MEDS ORDERED: FENTANYL CITR 100 MCG/2 ML ONE (08:06)
[2023-03-17] MEDS ORDERED: LIDOCAINE 1% MPF 5 ML VIAL ONE (08:07)
[2023-03-17] MEDS ORDERED: ROCURONIUM 50 MG/5 ML VIAL IV ONE (08:08)
[2023-03-17] MEDS ORDERED: ONDANSETRON 4 MG/2 ML VIAL ONE (08:08)
[2023-03-17] MEDS: AMPICILLIN SODIUM 2 GM/VIAL VIAL ONE ×2 (08:45→08:51)
[2023-03-17] MEDS ORDERED: TRAMADOL 37.5mg/APAP 325mg PER TAB PO ONE (08:48)
[2023-03-17] MEDS ORDERED: KETOROLAC 30 MG/ML INJ ONE (09:11)
[2023-03-17] MEDS ORDERED: dexAMETHasone 10 MG/ML VIAL ONE (09:11)
[2023-03-17] MEDS ORDERED: Mastisol Adhesive Liq ONE (09:26)
[2023-03-17] MEDS ORDERED: GLYCOPYRROLATE 0.2 MG/ML SYR ONE (09:27)
[2023-03-17] MEDS ORDERED: NEOSTIGMINE 1 MG/ML -10 ML VIAL ONE (09:28)
--- NOTE | 2023-03-17 09:56 | RAD REPORT ---
EXAM DESCRIPTION: RAD - Urethrocystogrphy Retrograde - 03/17/2023 9:39 am CLINICAL HISTORY: RIGHT STENT COMPARISON: Cystography dated 02/25/2023 FINDINGS: Total fluoro time: 6 seconds
[2023-03-17] MEDS ORDERED: MEPERIDINE HCL 25 MG/ML SYR ONE (10:00)
--- NOTE | 2023-03-17 10:04 | OP ---
Surgeon: OLESYA TOMAS Preoperative Diagnoses: 1. Right ureterolithiasis. 2. Right lower quadrant pain. Postoperative Diagnoses: 1. Right ureterolithiasis. 2. Right lower quadrant pain. Principal Procedures: 1. Cystoscopy. 2. Right ureteroscopy. 3. Cystoscopy with right ureteral stent exchange. 4. Cystoscopic foreign body extraction. Indication For Procedure: Ms. Godinez presented via the emergency department with significant pain associated with an obstructing 5mm distal ureteral calculus on the right side. She has a chronic pain syndrome, and difficulty with pain management. She underwent right ureteral stent placement earlier this month and presents today for definitive removal of the stone. Procedure In Detail: The patient was consented in the preoperative holding area before being transferred to the operative suite, where general anesthesia was induced. She was given ampicillin 2 g and gentamicin 120 mg IV antimicrobial prophylaxis, and pneumo boots were provided for DVT prophylaxis. She was placed in the lithotomy position, padded and secured to the table appropriately. Her genitalia were prepped with Hibiclens, and she was draped in a standard fashion. The case was begun using a 22-Ethiopian rigid cystoscope to traverse the urethra and into the bladder with ease. The bladder was decompressed of fluid and urine, and the stent was noted emanating from the right ureteral orifice. There was significant fibrinous debris on the coil of the stent. I was able to grasp the tip of the stent using an Alligator grasper and delivered the tip of the stent via the meatus leaving the proximal coil of the stent within the proximal ureter/renal pelvis. I passed a Sensor wire via the stent coiling it successfully in the putative renal pelvis and calyces. Leaving the Sensor wire in place, I then pulled the ureteral stent and removed it. I then used the semi-rigid ureteroscope to traverse the urethra and directly enter the right ureteral orifice surveying up the distal and to the mid and proximal ureter, where no stones were seen. There was some evidence of distal ureteral trauma, where the stone had likely lodged. So, I backed the ureteroscope out of the ureter after injecting dye via the ureteroscope to perform a retrograde pyelogram. Right retrograde pyelography: Using a 70:30 mixture of Omnipaque and saline injected via the lumen of the semi-rigid ureteroscope, contrast did progress from the position of the ureteroscope within the mid proximal ureter up the proximal ureter and into the renal pelvis and calyces, which delineated without any evidence of filling defect or ureteral injury/extravasation. I thus surveyed the ureter on the way out with the ureteroscope and on the way out did observe the ureteral calculus, now sitting within her bladder. The calculus likely was removed associated with pulling the ureteral stent. As a result, I backloaded the cystoscope over the safety wire, and I passed a 6-Ethiopian x 24 cm double-J ureteral stent with a coil observed fluoroscopically formed within her renal pelvis and one cystoscopically formed within her bladder. I then decompressed her bladder of fluid and urine, taking care to remove the ureteral calculus simultaneously under direct vision. This was collected and sent for chemical analysis. She was then taken out of the lithotomy position, awakened from general anesthesia, transferred to a stretcher, and then transferred to the recovery room in good condition. Complications: None. Discharge Disposition: As a recurrent stone former, she should complete a metabolic assessment via Litholink x2 in about 1 month Followup should be established with me in about 2-3 months to review that result. She may follow up on Thursday to have the tethered right ureteral stent removed. She was given a prescription for Bactrim DS prior to surgery, and she may be given a single dose of Bactrim DS on the day of stent removal if she has completed that course prescribed preoperatively. WING/CHAPARRITA Voice ID: [id number] Report ID: [id number] [facility]
[2023-03-17 12:56] VITALS: TEMP 97.4; O2SAT 100
[2023-03-17 12:57] VITALS: BP 94/65
== END 2023-03-17 11:00 | disposition home or self-care (01) ==
LOC: OR 07:21
PROVIDERS: ATTEND Urology
PROC: 0T768DZ Dilation of Right Ureter with Intraluminal Device, Via Natural or Artificial Opening Endoscopic (ICD-10-PCS; 2023-03-17)
PROC: 0TC68ZZ Extirpation of Matter from Right Ureter, Via Natural or Artificial Opening Endoscopic (ICD-10-PCS; principal; 2023-03-17 08:30)
DX: N20.1 Calculus of ureter (principal); N20.0 Calculus of kidney; R10.31 Right lower quadrant pain; T83.84XA Pain due to genitourinary prosthetic devices, implants and grafts, initial encounter
CPT/HCPCS: 87088; 85025; 87086; 80048; 36415; 85610; 88300; 82360; 74450; 51610; 52352; 52332; J2704; J2710; J2001; J1580; J2250; J3010; J1100; J2175; J2405; J0290; J7120